=== PATIENT | female | born 1985 | race Caucasian/White ===

== ENCOUNTER → 2017-10-25 07:47 | Outpatient (CLI) | payer OTHER, SELFPAY ==
--- NOTE | 2017-10-25 07:49 | DI.US.S_ITS ---
PROCEDURE: US OB >= 14 WEEKS FETUS INDICATIONS: 20 WEEK ANATOMIC SURVEY OUTSIDE/PRIOR DATING DATA: Last menstrual period (LMP): 06/07/2018. LMP-based estimated date of delivery ([facility]MAN): 03/14/2018. First dating scan (date and location): 08/25/2017. Estimated date of delivery ([facility]) from first dating scan: 03/09/2018. TECHNIQUE: Real-time scanning was performed of the fetus, with image documentation and biometric measurements. Endovaginal scanning: None required COMPARISON: 08/25/2017 FINDINGS: General: A single living intrauterine gestation is present. Presentation: Breech. Placenta: Placental position is anterior, without previa. Amniotic fluid index: 13.2 cm, normal range is 5-24 cm. heart rate: 157 beats per minute. Maternal cervical canal: 3.9 cm long. Normal lower limit is 2.5 cm. biometrics: Biparietal diameter: 19 weeks 6 days Head circumference: 20 weeks one day Abdominal circumference: 19 weeks 6 days Femur length: 20.0 weeks Estimated gestational age from initial scan: 20 weeks 5 days Composite gestational age from present scan: 20.0 weeks, normal growth Estimated weight and percentile: 325 g at the 13th percentile Measurement variability for biometric dating: +/- 7 days from 14 weeks to 15 weeks 6 days gestation, +/- 10 days from 16 weeks to 21 weeks 6 days gestation, +/- 2 weeks from 22 weeks to 27 weeks 6 days gestation, +/- 3 weeks for 28 weeks gestation or later. weight reference: 4500 g or EFW >90/95% is considered macrosomia or large for gestational age. EFW <10% is small for gestational age. EFW 5% or less is considered intra-uterine growth restriction. Anatomic survey: Neuro: Ventricles are non-dilated at less than 10 mm. Cisterna magna is normal at 3-11 mm. Cerebellum is normal in size and morphology. Nuchal skin fold: Normal at less than 6 mm between 14-21 weeks gestational age. Face: Nose and lips, facial profile are normal. Spine: No evidence for spina bifida. Heart: 4-chambered heart is present, with normal ventricular outflow tracts. Diaphragm: Diaphragm is intact. Stomach: Left-sided stomach is present. Kidneys: No hydronephrosis. Normal is less than 5 mm in 2nd trimester, less than 7 mm in 3rd trimester. Cord: 3-vessel cord has orthotopic insertion. Bladder: Normal in size. Extremities: All 4 extremities identified. IMPRESSION: Single, live intrauterine gestation and somewhat variable position, breech to transverse. Estimated gestational age is 20 weeks, normal growth and normal anatomy. Dictated by: Kendall Schroeder M.D. on 10/25/2017 at 8:43 Approved by: Kendall Schroeder M.D. on 10/25/2017 at 8:46
== END ==
PROVIDERS: Family Provider Physician Assistant; PCP Physician Assistant; Visit Provider Specialist
DX: Z34.92 Encounter for supervision of normal pregnancy, unspecified, second trimester (principal); Z3A.20 20 weeks gestation of pregnancy
CPT/HCPCS: 76811

== ENCOUNTER → 2017-12-08 11:37 | Outpatient (CLI) | payer OTHER, SELFPAY ==
[2017-12-08 13:20] LABS: Hematocrit 37.5 % (36-46); Hemoglobin 13.1 g/dL (12.0-16.0)
[2017-12-08 13:37] LABS: GTT (PREG) 1 Hour PP 50gm Dose 141 mg/dL (76-139)
== END ==
PROVIDERS: PCP Physician Assistant; Visit Provider Specialist
DX: Z34.02 Encounter for supervision of normal first pregnancy, second trimester (principal)
CPT/HCPCS: 36415; 82950; 85014; 85018

== ENCOUNTER → 2017-12-22 08:58 | Outpatient (CLI) | payer OTHER, SELFPAY ==
[2017-12-22 14:32] LABS: Urine N gonorrhoeae NOT DETECTED
[2017-12-22 14:47] LABS: Urine Chlamydia NOT DETECTED
== END ==
PROVIDERS: Family Provider Physician Assistant; PCP Physician Assistant; Visit Provider Specialist
DX: Z3A.29 29 weeks gestation of pregnancy (principal)
CPT/HCPCS: 87491; 87591

== ENCOUNTER → 2018-02-16 10:16 | Outpatient (CLI) | payer OTHER, SELFPAY ==
[2018-02-17 20:35] LABS: Strep Grp B PCR POS for Grp B Strep
== END ==
PROVIDERS: Family Provider Physician Assistant; PCP Physician Assistant; Visit Provider Specialist
DX: Z34.03 Encounter for supervision of normal first pregnancy, third trimester (principal); Z3A.36 36 weeks gestation of pregnancy
CPT/HCPCS: 87653

== ENCOUNTER 2018-03-07 12:14 | Observation (INO) | payer OTHER, SELFPAY | END 2018-03-07 13:36 | disposition home or self-care (01) | PROVIDERS: Admitting Provider Specialist; PCP Physician Assistant; Visit Provider Specialist | DX: Z34.03 Encounter for supervision of normal first pregnancy, third trimester (principal); Z3A.39 39 weeks gestation of pregnancy | CPT/HCPCS: 59025; G0378; G0379 ==

== ENCOUNTER 2018-03-07 15:05 | Observation (INO) | payer OTHER, SELFPAY ==
[2018-03-07] MEDS: hydrOXYzine 50 MG/ML INJ 25 MG IM (16:35)
[2018-03-07] MEDS: MORPHINE 10 MG/ML INJ 5 MG IM (16:35)
--- NOTE | 2018-03-07 16:57 | PM.OBTRLD ---
Visit Information Visit Information Date of evaluation: 03/07/18 Primary OB Provider: Rosalind Huang On-call OB Provider: Mihaela Marquez Reason for Evaluation: Yes rule out labor [facility] Medical History Anxiety (Chronic) Depression (Chronic) Fibroids (Chronic ~2010) Irritable bowel syndrome (Chronic ~2009) Vitiligo (Chronic) Bulimia (Resolved) Chickenpox (Resolved ~1989) Surgical History Anesthesia (Inactive) History of third molar tooth extraction (05/28/16) Status post breast reduction (~2005) Family History Father Age: 60 Hypertension, essential Generalized anxiety disorder Grandmother History of colon cancer History of multiple sclerosis Diabetes mellitus Heart disease Hypertension Mother Age: 59 Hypertension, essential Gastroparesis History of skin cancer High cholesterol Endometriosis Fibroids H/O: hysterectomy Grandfather Age: 88 History of type 2 diabetes mellitus Hypertension Grandmother Age: 86 Heart disease Generalized anxiety disorder Hypertension Sister Age: 36 Hypertension, essential Evaluation Evaluation Baseline heart rate: 130 Variability: Moderate (11-25) monitor accelerations: Present monitor decelerations: Absent Contraction Frequency (minutes): 3 Uterine Contraction Intensity: Moderate Category of Tracing: I Cervical dilation (cm): 1 Cervical effacement (%): 70 station: -3 Diagnosis, Plan/Disposition Final Diagnosis (1) 39 weeks gestation of : Current Visit: Yes Status: Acute Plan/Disposition Plan: Patient comes in with regular painful contractions however SVE /-3. Patient prefers to labor at home rather than walk for an hour. NST reactive.
--- NOTE | 2018-03-07 17:00 | P.TNLD_ITS ---
Visit Information Visit Information Date of evaluation: 03/07/18 Primary OB Provider: Rosalind Huang On-call OB Provider: Mihaela Marquez Reason for Evaluation: Yes rule out labor [facility] Medical History Anxiety (Chronic) Depression (Chronic) Fibroids (Chronic ~2010) Irritable bowel syndrome (Chronic ~2009) Vitiligo (Chronic) Bulimia (Resolved) Chickenpox (Resolved ~1989) Surgical History Anesthesia (Inactive) History of third molar tooth extraction (05/28/16) Status post breast reduction (~2005) Family History Father Age: 60 Hypertension, essential Generalized anxiety disorder Grandmother History of colon cancer History of multiple sclerosis Diabetes mellitus Heart disease Hypertension Mother Age: 59 Hypertension, essential Gastroparesis History of skin cancer High cholesterol Endometriosis Fibroids H/O: hysterectomy Grandfather Age: 88 History of type 2 diabetes mellitus Hypertension Grandmother Age: 86 Heart disease Generalized anxiety disorder Hypertension Sister Age: 36 Hypertension, essential Evaluation Evaluation Baseline heart rate: 130 Variability: Moderate (11-25) monitor accelerations: Present monitor decelerations: Absent Contraction Frequency (minutes): 3 Uterine Contraction Intensity: Moderate Category of Tracing: I Cervical dilation (cm): 1 Cervical effacement (%): 70 station: -3 Diagnosis, Plan/Disposition Final Diagnosis (1) 39 weeks gestation of : Current Visit: Yes Status: Acute Plan/Disposition Plan: Patient comes in with regular painful contractions however SVE /-3. Patient prefers to labor at home rather than walk for an hour. NST reactive.
--- NOTE | 2018-03-07 17:02 | P.TNLD_ITS ---
Visit Information Visit Information Date of evaluation: 03/07/18 Primary OB Provider: Rosalind Huagn On-call OB Provider: Mihaela Marquez Reason for Evaluation: Yes rule out labor [facility] Medical History Anxiety (Chronic) Depression (Chronic) Fibroids (Chronic ~2010) Irritable bowel syndrome (Chronic ~2009) Vitiligo (Chronic) Bulimia (Resolved) Chickenpox (Resolved ~1989) Surgical History Anesthesia (Inactive) History of third molar tooth extraction (05/28/16) Status post breast reduction (~2005) Family History Father Age: 60 Hypertension, essential Generalized anxiety disorder Grandmother History of colon cancer History of multiple sclerosis Diabetes mellitus Heart disease Hypertension Mother Age: 59 Hypertension, essential Gastroparesis History of skin cancer High cholesterol Endometriosis Fibroids H/O: hysterectomy Grandfather Age: 88 History of type 2 diabetes mellitus Hypertension Grandmother Age: 86 Heart disease Generalized anxiety disorder Hypertension Sister Age: 36 Hypertension, essential Evaluation Evaluation Baseline heart rate: 120 Variability: Moderate (11-25) monitor accelerations: Present monitor decelerations: Absent Contraction Frequency (minutes): 3 Category of Tracing: I Cervical dilation (cm): 1 Cervical effacement (%): 70 station: -4 Diagnosis, Plan/Disposition Final Diagnosis (1) 39 weeks gestation of : Current Visit: Yes Status: Acute Plan/Disposition Plan: Patient returned to the center with regular painful contractions however SVE unchanged. Patient significantly improved after morphine, hydroxyzine and a hot shower. Return precautions reviewed with patient.
== END 2018-03-07 17:05 | disposition home or self-care (01) ==
PROVIDERS: Admitting Provider Specialist; PCP Physician Assistant; Visit Provider Specialist
DX: Z3A.39 39 weeks gestation of pregnancy (principal)
CPT/HCPCS: 59025; 96372; G0378; G0379; J2270; J3410

== ENCOUNTER 2018-03-07 21:50 | Inpatient (IN) | payer OTHER, SELFPAY ==
[2018-03-07 22:42] LABS: Add Manual Diff / Slide Review NO; Hematocrit 42.1 % (36-46); Hemoglobin 14.9 g/dL (12.0-16.0); Lymphocytes Percent Auto 4.1 % (25-40); Mean Corpuscular HGB Conc 35.4 % (30-36); Mean Corpuscular Hemoglobin 31.4 PG (26-34); Mean Corpuscular Volume 88.8 fL (80-100); Monocytes Percent Auto 1.7 % (3-14); Neutrophils Absolute Auto 17500 /uL (3000-5900); Neutrophils Percent Auto 94.2 % (50-75); Platelet Count 155 X10^3/uL (150-400); Red Blood Cell Count 4.74 X10^6/uL (4.0-5.2); Red Cell Distribution Width 12.4 % (11.6-14.8); White Blood Cell Count 18.5 X10^3/uL (4.5-11.0)
[2018-03-07] MEDS: PENICILLIN G POTASSIUM 5,000,000 UNIT in DEXTROSE 5% IN WATER 250 ML IV (22:53)
[2018-03-07] MEDS: LACTATED RINGERS 1,000 ML 100 ML IV (22:53)
--- NOTE | 2018-03-07 23:18 | PM.OBHP.1 ---
OB HPI Date/Time Date of admission: 03/07/18 Date Patient Seen: 03/07/18 Time Patient Seen: 23:00 History of Present Condition Chief complaint: eval of labor : 1 Para: 0 Estimated Date of Delivery: 03/14/18 Estimated Gestational Age (weeks): 39 wks Narrative: Talita Alfonso is a 32 year old at 39 weeks gestation. Patient had regular care with Dr. Huang. Contractions began at approximately 5 AM today. Patient came to the center twice but was sent home due to lack of cervical change. She returned at third time this evening with regular painful contractions and was 3 cm dilated. History of Present care: good care, initiated at week # (11), number of visits and pounds weight gain (24) Dating criteria: LMP confirmed by 1st trimester US Ultrasounds: normal 1st trimester US and normal mid trimester US Obstetrical complications: none Medical complications: cardiovascular (mitral valve prolapse) Preadmission Labs Blood type: O (+) positive -: Antibody screen: negative, GBS status: positive, HBsAG: negative, HIV: negative, HSV 1: positive, HSV 2: negative and RPR/VDLR: negative -: Chlamydia screen: not detected and Gonorrhea screen: not detected -: Rubella: immune and Varicella: immune HCT: 40.2 HCAB: negative 1 hr GTT: 141 Evaluation Evaluation Baseline heart rate: 130 Variability: Moderate (11-25) monitor accelerations: Present monitor decelerations: Prolonged (One, possibly two prolonged decelerations) Contraction Frequency (minutes): 2 Uterine Contraction Intensity: Strong/Firm Category of Tracing: II Cervical dilation (cm): 3 Cervical effacement (%): 100 station: -3 Laboratory results: Laboratory Tests 03/07/18 03/07/18 22:15 22:15 WBC 18.5 H RBC 4.74 Hgb 14.9 Hct 42.1 MCV 88.8 MCH 31.4 MCHC 35.4 RDW 12.4 Plt Count 155 Neut % (Auto) 94.2 H Lymph % (Auto) 4.1 L [place] % (Auto) 1.7 L Eos % (Auto) 0.0 L Baso % (Auto) 0.0 Neut # (Auto) 17219 H Blood Type O Positive Comments: SROM with thick meconium per RN [facility] Medical History Anxiety (Chronic) Depression (Chronic) Fibroids (Chronic ~2010) Irritable bowel syndrome (Chronic ~2009) Vitiligo (Chronic) Bulimia (Resolved) Chickenpox (Resolved ~1989) Surgical History Anesthesia (Inactive) History of third molar tooth extraction (05/28/16) Status post breast reduction (~2005) Family History Father Age: 60 Hypertension, essential Generalized anxiety disorder Grandmother History of colon cancer History of multiple sclerosis Diabetes mellitus Heart disease Hypertension Mother Age: 59 Hypertension, essential Gastroparesis History of skin cancer High cholesterol Endometriosis Fibroids H/O: hysterectomy Grandfather Age: 88 History of type 2 diabetes mellitus Hypertension Grandmother Age: 86 Heart disease Generalized anxiety disorder Hypertension Sister Age: 36 Hypertension, essential Meds Home Medications Medication Instructions Recorded Confirmed Type betamethasone dipropionate 0 TOPICAL BID #15 gm 02/17/17 Rx fluoxetine 40 mg PO QDAY #90 cap 03/30/17 Rx breast pump #1 each 12/22/17 12/22/17 Rx Allergies Allergy/AdvReac Type Severity Reaction Status Date / Time erythromycin base Allergy Intermediate VOMITING Verified 03/07/18 22:58 [ERYTHROMYCIN BASE] Review of Systems Constitutional Constitutional: Denies fatigue and Denies headache(s) Eyes Eyes: Denies change in vision ENT Ears, Nose, Mouth, and Throat: No headache(s) Respiratory Respiratory: Denies cough Gastrointestinal Gastrointestinal: Denies nausea and Denies vomiting Neurologic Neurologic: Denies headache(s) Endocrine Endocrine: Denies fatigue Exam Const General: healthy appearing and other (Uncomfortable but coping well with contractions) HENMT Head: normal to inspection Ears: hearing grossly normal bilaterally Nose: external nose normal Mouth: oral mucosae normal Eyes General: appearance normal, both eyes and all related structures Conjunctivae: conjunctivae normal EOM: EOM intact bilaterally Neck Neck: normal visual inspection Resp Effort & Inspection: normal respiratory effort and able to speak in complete sentences Cardio Rate: regular rate Rhythm: regular rhythm Manual OB Exam: dilated 3, effaced fully and station high Estimated Weight (lbs): 7 Amniotic Fluid: meconium Extrem General: no clubbing, cyanosis or edema Objective Labs Result Diagrams: 03/07/18 22:15 Labs: Laboratory Results - last 24 hr 03/07/18 03/07/18 22:15 22:15 WBC 18.5 H RBC 4.74 Hgb 14.9 Hct 42.1 MCV 88.8 MCH 31.4 MCHC 35.4 RDW 12.4 Plt Count 155 Neut % (Auto) 94.2 H Lymph % (Auto) 4.1 L [place] % (Auto) 1.7 L Eos % (Auto) 0.0 L Baso % (Auto) 0.0 Neut # (Auto) 05698 H Blood Type O Positive Assessment and Plan (1) 39 weeks gestation of : Current visit: No Status: Acute 32 year old at 39 weeks gestation in active labor. SROM with meconium. GBS positive. Patient had one prolonged deceleration to 90 for unclear reasons. FHT otherwise reassuring. Plan - GBS prophylaxis - Expectant management - Patient does not want an epidural but is open to IV pain medication
--- NOTE | 2018-03-07 23:30 | P.HPOB_ITS ---
OB HPI Date/Time Date of admission: 03/07/18 Date Patient Seen: 03/07/18 Time Patient Seen: 23:00 History of Present Condition Chief complaint: eval of labor : 1 Para: 0 Estimated Date of Delivery: 03/14/18 Estimated Gestational Age (weeks): 39 wks Narrative: Talita Alfonso is a 32 year old at 39 weeks gestation. Patient had regular care with Dr. Huang. Contractions began at approximately 5 AM today. Patient came to the center twice but was sent home due to lack of cervical change. She returned at third time this evening with regular painful contractions and was 3 cm dilated. History of Present care: good care, initiated at week # (11), number of visits and pounds weight gain (24) Dating criteria: LMP confirmed by 1st trimester US Ultrasounds: normal 1st trimester US and normal mid trimester US Obstetrical complications: none Medical complications: cardiovascular (mitral valve prolapse) Preadmission Labs Blood type: O (+) positive -: Antibody screen: negative, GBS status: positive, HBsAG: negative, HIV: negative, HSV 1: positive, HSV 2: negative and RPR/VDLR: negative -: Chlamydia screen: not detected and Gonorrhea screen: not detected -: Rubella: immune and Varicella: immune HCT: 40.2 HCAB: negative 1 hr GTT: 141 Evaluation Evaluation Baseline heart rate: 130 Variability: Moderate (11-25) monitor accelerations: Present monitor decelerations: Prolonged (One, possibly two prolonged decelerations) Contraction Frequency (minutes): 2 Uterine Contraction Intensity: Strong/Firm Category of Tracing: II Cervical dilation (cm): 3 Cervical effacement (%): 100 station: -3 Laboratory results: Laboratory Tests 03/07/18 03/07/18 22:15 22:15 WBC 18.5 H RBC 4.74 Hgb 14.9 Hct 42.1 MCV 88.8 MCH 31.4 MCHC 35.4 RDW 12.4 Plt Count 155 Neut % (Auto) 94.2 H Lymph % (Auto) 4.1 L [place] % (Auto) 1.7 L Eos % (Auto) 0.0 L Baso % (Auto) 0.0 Neut # (Auto) 79024 H Blood Type O Positive Comments: SROM with thick meconium per RN [facility] Medical History Anxiety (Chronic) Depression (Chronic) Fibroids (Chronic ~2010) Irritable bowel syndrome (Chronic ~2009) Vitiligo (Chronic) Bulimia (Resolved) Chickenpox (Resolved ~1989) Surgical History Anesthesia (Inactive) History of third molar tooth extraction (05/28/16) Status post breast reduction (~2005) Family History Father Age: 60 Hypertension, essential Generalized anxiety disorder Grandmother History of colon cancer History of multiple sclerosis Diabetes mellitus Heart disease Hypertension Mother Age: 59 Hypertension, essential Gastroparesis History of skin cancer High cholesterol Endometriosis Fibroids H/O: hysterectomy Grandfather Age: 88 History of type 2 diabetes mellitus Hypertension Grandmother Age: 86 Heart disease Generalized anxiety disorder Hypertension Sister Age: 36 Hypertension, essential Meds Home Medications Medication Instructions Recorded Confirmed Type betamethasone dipropionate 0 TOPICAL BID #15 gm 02/17/17 Rx fluoxetine 40 mg PO QDAY #90 cap 03/30/17 Rx breast pump #1 each 12/22/17 12/22/17 Rx Allergies Allergy/AdvReac Type Severity Reaction Status Date / Time erythromycin base Allergy Intermediate VOMITING Verified 03/07/18 22:58 [ERYTHROMYCIN BASE] Review of Systems Constitutional Constitutional: Denies fatigue and Denies headache(s) Eyes Eyes: Denies change in vision ENT Ears, Nose, Mouth, and Throat: No headache(s) Respiratory Respiratory: Denies cough Gastrointestinal Gastrointestinal: Denies nausea and Denies vomiting Neurologic Neurologic: Denies headache(s) Endocrine Endocrine: Denies fatigue Exam Const General: healthy appearing and other (Uncomfortable but coping well with contractions) HENMT Head: normal to inspection Ears: hearing grossly normal bilaterally Nose: external nose normal Mouth: oral mucosae normal Eyes General: appearance normal, both eyes and all related structures Conjunctivae: conjunctivae normal EOM: EOM intact bilaterally Neck Neck: normal visual inspection Resp Effort & Inspection: normal respiratory effort and able to speak in complete sentences Cardio Rate: regular rate Rhythm: regular rhythm Manual OB Exam: dilated 3, effaced fully and station high Estimated Weight (lbs): 7 Amniotic Fluid: meconium Extrem General: no clubbing, cyanosis or edema Objective Labs Result Diagrams: 03/07/18 22:15 Labs: Laboratory Results - last 24 hr 03/07/18 03/07/18 22:15 22:15 WBC 18.5 H RBC 4.74 Hgb 14.9 Hct 42.1 MCV 88.8 MCH 31.4 MCHC 35.4 RDW 12.4 Plt Count 155 Neut % (Auto) 94.2 H Lymph % (Auto) 4.1 L [place] % (Auto) 1.7 L Eos % (Auto) 0.0 L Baso % (Auto) 0.0 Neut # (Auto) [id number] H Blood Type O Positive Assessment and Plan (1) 39 weeks gestation of : Current visit: No Status: Acute 32 year old at 39 weeks gestation in active labor. SROM with meconium. GBS positive. Patient had one prolonged deceleration to 90 for unclear reasons. FHT otherwise reassuring. Plan - GBS prophylaxis - Expectant management - Patient does not want an epidural but is open to IV pain medication
[2018-03-08] VITALS (8 sets, daily range): BP systolic 98–128; BP diastolic 39–74; PULSE 61–74; RESP 16; TEMP 36.1–36.4; O2SAT 95–97
[2018-03-08] MEDS: fentaNYL 100 MCG/2 ML INJ 50 MCG IV ×2 (01:14→02:56)
--- NOTE | 2018-03-08 01:46 | PM.OBPNLAB ---
Date/Time Date Patient Seen: 03/08/18 Time Patient Seen: 01:35 Pain Control Pain control: tolerating well Pelvic Exam Dilation (cm): 4 Effacement (%): 100 station: -3 Amniotic membrane status: Ruptured Contractions Contractions on admission: regular Monitor mode: External Contraction pattern: Regular Contraction intensity: Strong/Firm Status status: Category ll Heart Rate Baseline: 130 Monitor Accelerations: Present Monitor Decelerations: Variable (infrequent small variable decels) Monitor Variability: Moderate Assessment and Plan Plan: continuous present management Comments: Minimal change in SVE since admission. Discussed with patient continuing present management for the next 1-2 hours and if no change then start pitocin. Also discussed possibility of epidural to allow patient to rest. Patient is coping very well.
[2018-03-08] MEDS: PENICILLIN G POTASSIUM 3,000,000 UNIT/50 ML FROZ.PIGGY 100 UNIT IV ×2 (02:36→06:32)
[2018-03-08] MEDS: LACTATED RINGERS 1,000 ML 100 ML IV ×3 (05:48→16:28)
--- NOTE | 2018-03-08 06:26 | PM.OBPNLAB ---
Date/Time Date Patient Seen: 03/08/18 Time Patient Seen: 06:14 Pain Control Pain control: tolerating well and epidural Pelvic Exam Dilation (cm): 5 Effacement (%): 100 station: -2 Amniotic membrane status: Ruptured Comments: SVE per RN Contractions Monitor mode: External Contraction pattern: Regular Contraction intensity: Moderate Status status: Category ll Heart Rate Baseline: 130 Monitor Accelerations: Present Monitor Decelerations: Variable (intermittent) Monitor Variability: Moderate Assessment and Plan Comments: Patient had made slow cervical change earlier this morning however no change in the last two hours. Will start pitocin. Patient comfortable with epidural.
[2018-03-08] MEDS: OXYTOCIN PREMIX 30 UNIT/500 ML PLAST..BAG IV (06:33)
--- NOTE | 2018-03-08 09:19 | PM.OBPNLAB ---
Date/Time Date Patient Seen: 03/08/18 Time Patient Seen: 09:00 Pain Control Pain control: epidural Pelvic Exam Dilation (cm): 5 Effacement (%): 100 station: -2 Amniotic membrane status: Bulging Comments: AROM thick meconium Contractions Contractions on admission: irregular Monitor mode: External Pitocin rate (mU/min): 4 Contraction pattern: Regular Contraction intensity: Moderate Status status: Category ll Heart Rate Baseline: 140 Monitor Accelerations: Present Monitor Decelerations: Variable Monitor Variability: Moderate Assessment and Plan Comments: No cervical change, question adequacy of contractions. AROM with thick meconium. IUPC placed. Titrate pitocin to adequate contractions.
--- NOTE | 2018-03-08 11:25 | PM.OBPNLAB ---
Date/Time Date Patient Seen: 03/08/18 Time Patient Seen: 11:00 Pain Control Pain control: epidural (not working well) Pelvic Exam Dilation (cm): 4 Effacement (%): 100 station: -2 Amniotic membrane status: Ruptured Contractions Monitor mode: External Contraction pattern: Regular Contraction intensity: Strong/Firm Status status: Category ll Heart Rate Baseline: 140 Monitor Accelerations: Present Monitor Decelerations: Variable (recurrent deep variables to 90) Monitor Variability: Moderate Assessment and Plan Plan: Comments: No cervical change and cervix now feels swollen. Also with recurrent deep variable decelerations despite discontinuation of pitocin. Discussed with patient. Risks reviewed. Consent signed. Will proceed with primary low transverse section for intolerance of labor and arrest of labor. OR aware.
--- NOTE | 2018-03-08 11:29 | P.PNOB_ITS ---
Date/Time Date Patient Seen: 03/08/18 Time Patient Seen: 11:00 Pain Control Pain control: epidural (not working well) Pelvic Exam Dilation (cm): 4 Effacement (%): 100 station: -2 Amniotic membrane status: Ruptured Contractions Monitor mode: External Contraction pattern: Regular Contraction intensity: Strong/Firm Status status: Category ll Heart Rate Baseline: 140 Monitor Accelerations: Present Monitor Decelerations: Variable (recurrent deep variables to 90) Monitor Variability: Moderate Assessment and Plan Plan: Comments: No cervical change and cervix now feels swollen. Also with recurrent deep variable decelerations despite discontinuation of pitocin. Discussed c- section with patient. Risks reviewed. Consent signed. Will proceed with primary low transverse section for intolerance of labor and arrest of labor. OR aware.
[2018-03-08] MEDS: CEFAZOLIN 2 GM/100 ML FROZ.PIGGY IV (11:30)
--- NOTE | 2018-03-08 12:13 | SUR.OPER ---
Supine on Padded OR bed, head on pillow, safety belt at thigh, arms secured on padded arm boards at <90 degrees abduction. Bump under right buttock. Legs uncrossed with pillow under knees, gel pad to heels, tape over blanket to lower legs.
--- NOTE | 2018-03-08 12:35 | SUR.OPER ---
FHT 120 after spinal placed, viable baby girl born at 1205
--- NOTE | 2018-03-08 12:54 | P.OP_ITS ---
Operative Date/Time/Diagnoses Date of procedure: 03/08/18 Time of procedure: 12:00 Pre-op diagnosis: Arrest of labor intolerance of labor Post-op diagnosis: same Procedure & Clinicians Procedure: Primary low transverse section Same procedure as scheduled: Yes Indications: intolerance of labor Arrest of labor Surgeon: Mihaela Marquez Nature Photographer: Radha Clemons Anesthesia Type: Spinal Operative Notes Findings: Viable female Normal uterus, tubes and ovaries Closure Type: primary Specimen(s): other (Cord gases) Implants & Drains: Applied: catheter Estimated Blood Loss (mL): 750 Procedure in detail: The patient was taken to the operating room where she was placed in the seated position. Epidural was inadequate so spinal anesthesia was administered. She was then placed in the dorsal supine position with a leftward tilt. She was prepped and draped in the usual sterile fashion. A timeout was performed. After spinal analgesia was found to be adequate, a Pfannenstiel skin incision was made 2 fingerbreadths above the pubic symphysis and carried through to the underlying layer fascia. The fascia was nicked in the midline and the incision extended bilaterally with Quan scissors. The superior aspect of the fascial incision was grasped with a Nichole clamps, elevated, and the underlying rectus muscles dissected off sharply and bluntly. Attention was then turned to the inferior aspect of this incision which in a similar fashion was grasped with a Nichole clamps, elevated, and the underlying rectus muscles dissected off sharply and bluntly. The rectus muscles were in the midline. The peritoneum was identified, grasped between 2 hemostats, and entered sharply with the Metzenbaum scissors. This incision was extended superiorly and inferiorly with good visualization of the bladder. The bladder blade was inserted. The vesicouterine peritoneum was identified, grasped with the pickup , and entered sharply with the Metzenbaum scissors. This incision was extended bilaterally, and the bladder flap was created digitally. The bladder blade was reinserted. The lower uterine segment was incised in a transverse fashion with the scalpel. Upon entering the amniotic sac there was a small amount of thick meconium stained amniotic fluid. The infant's head was delivered. The remainder of the body delivered without difficulty. The cord was double clamped and cut. A segment of cord was sent for gases. The was handed off to waiting RN and RT. The placenta was delivered manually. The uterus was cleared of all clots and debris. The uterine incision was repaired with #1 chromic in a running interlocking fashion and a second layer the same suture was used for an imbricating layer. Hemostasis was achieved. The tubes and ovaries were examined and were found to be normal. The gutters were cleared of all clots and debris. The bladder flap was reapproximated using 2-0 Vicryl in a running fashion. The parietal peritoneum was closed using 2-0 Vicryl in a running fashion. The fascia was reapproximated using 0 Vicryl in a running fashion. Subcutaneous layer was copiously irrigated with warm normal saline. 4 simple interrupted sutures of 3-0 Vicryl were placed to reapproximate the subcutaneous layer. The skin was closed with 4-0 undyed Vicryl in a subcuticular fashion. Steri-Strips were placed. An Aquacel dressing was placed. The uterus was expressed of a small amount of old blood. Sponge, lap, and instrument counts were correct. The patient tolerated the procedure well, and was taken to PACU in stable condition. Complications: none Condition: stable Disposition: PACU
--- NOTE | 2018-03-08 13:42 | SUR.PHASEI ---
upon transfer pt was awake and alert no complaints voiced. pt spinal decreasing to T5 . pt had ortiz and states she is comfortable. Pt turned and cleaned up.
[2018-03-08] MEDS: KETOROLAC 30 MG/ML VIAL IV (19:28)
[2018-03-09] MEDS: KETOROLAC 30 MG/ML VIAL IV ×3 (01:18→13:41)
[2018-03-09 07:04] LABS: Hematocrit 33.7 % (36-46); Hemoglobin 11.7 g/dL (12.0-16.0)
[2018-03-09] MEDS: DOCUSATE 250 MG CAPSULE PO (10:28)
[2018-03-09] MEDS: OXYCODONE/ACETAMINOPHEN 5/325 TABLET 1 TAB PO ×3 (10:29→19:33)
--- NOTE | 2018-03-09 13:40 | PM.OBPN.1 ---
Subjective - OB Interval history: Patient is postop day 1. section Patient comments: no complaints, pain well controlled and tolerating diet baby status: doing well feeding status: exclusively breast feeding Narrative: Overall patient is doing well without concerns. Date Patient Seen: 03/09/18 Time Patient Seen: 07:00 Exam Vital Signs (past 8 hours): Blood pressure 99/65, pulse 71, temperature 98 Oxygen Delivery Method Room Air Narrative Exam Narrative: Patient's abdomen is soft, nontender. Uterus is firm, at U, appropriately tender. Dressing is clean, dry, and intact. Mild lochia. Extremities without edema, nontender. Objective Labs Result Diagrams: 03/09/18 06:48 Labs: Laboratory Results - last 24 hr 03/09/18 06:48 Hgb 11.7 L Hct 33.7 L Assessment & Plan (1) Delivery by section of full-term : Status: Acute Current Visit: Yes (2) 39 weeks gestation of : Status: Acute Current Visit: No Plan day: 1 plan OB: routine postop care Time Spent With Patient Total time spent is greater than 50% in coordination of care (as documented) at patient's floor/unit and/or counseling patient: less than 15 minutes
[2018-03-09] MEDS: IBUPROFEN 600 MG TABLET PO (19:31)
[2018-03-10] MEDS: OXYCODONE/ACETAMINOPHEN 5/325 TABLET 1 TAB PO ×4 (00:34→12:45)
[2018-03-10] MEDS: IBUPROFEN 600 MG TABLET PO ×3 (02:22→13:42)
--- NOTE | 2018-03-10 07:39 | P.PN_ITS ---
Subjective Date Patient Seen: 03/10/18 Time Patient Seen: 07:37 Interval history: Patient is more uncomfortable today. She is very gassy and is feeling like she needs a bowel movement but is too uncomfortable to push. She is urinating well. She is ambulatory. She denies any headaches, scotoma, epigastric pain. Exam Vital Signs (past 8 hours): Blood pressure 135/92, pulse is 77, temperature 96.2? Oxygen Delivery Method Room Air Narrative Exam Narrative: Abdomen is soft with mild distention. The uterus is firm, at U , appropriately tender. Dressing is clean, dry, intact. Mild lochia. Extremities without edema and nontender. Objective Labs Result Diagrams: 03/09/18 06:48 Assessment & Plan (1) Delivery by section of full-term infant: Current visit: Yes Status: Acute Plan: Assessment/Plan Narrative: Patient is not sure she is ready to be discharged home. She will be evaluated later in the day for possible discharge today or tomorrow. Routine discharge discussion was gone over the patient. Time Spent With Patient Time with patient: less than 15 minutes
[2018-03-10 09:49] VITALS: BP 118/69; PULSE 69; RESP 16; TEMP 36.8
--- NOTE | 2018-03-10 18:15 | PM.OBDS.1 ---
Discharge Providers Date of admission: 03/07/18 21:50 Primary care physician: Regina Garcia PA-C Consults: 03/08/18 14:26 Consult to Airbrush Artist Technical Routine Comment: Discharge provider: Rosalind Huang MD Discharge Date: 03/10/18 Summary Date Patient Seen: 03/10/18 Time Patient Seen: 07:18 Peripartum Data Delivery Method: Section Procedures: Primary low-transverse section for first-stage arrest complications: none [place] 1: Gender: Female Disposition of : home Discharge Diagnosis (1) Delivery by section of full-term infant: Status: Acute Status at Discharge Functional status at discharge: independent ambulation Overall status at discharge: patient is progressing back to baseline Time Spent with Patient Total time spent providing and/or coordinating discharge services: Less than 30 minutes Objective Labs Result Diagrams: 03/09/18 06:48 Discharge Plan Discharge Plan Patient Disposition: Home Discharge Med Rec/Prescriptions Prescriptions: New oxycodone-acetaminophen 5-325 mg Tablet 1 tab PO Q4HR PRN (Reason: Pain, Moderate (4-6)) Qty: 40 RF: 0 ibuprofen 600 mg Tablet 600 mg PO Q6HR PRN (Reason: As Needed For Fever/Mild Pain) Qty: 30 RF: 0 docusate sodium 250 mg Capsule 250 mg PO DAILY Qty: 20 RF: 0 Continue betamethasone dipropionate 0.05 % ointment Topical BID Qty: 15 RF: 1 breast pump device .Route .MEDSUPPLY Qty: 1 RF: 0 Discontinued fluoxetine 40 MG capsule 40 mg PO QDAY Qty: 90 RF: 0 Follow up/Referrals: Rosalind Huang MD [Physician] - 1 Week (Appointment on at 4:45pm. clinic on at 10:00 am.) Provider Discharge Instructions Diet: Diet as Tolerated Activity: No heavy lifting No intercourse Skin/Wound/Dressing Care Report to your healthcare provider any signs of infection, such as:: chills, fever, increased pain and unusual drainage Dressing: Do not remove Aquaclel dressing Visit Report/Discharge Packet Instructions: DI for Visit Report Forms: Stroke Signs & Symptoms Discharge Data Primary Care Provider: Regina Garcia Attending Provider: Mihaela Marquez Admit Date/Time: 03/07/18 21:50 Discharges patient from system. Discharge Date/Time: 03/10/18 15:15
== END 2018-03-10 15:15 | disposition home or self-care (01) | DRG 766 ==
PROVIDERS: Admitting Provider Family Medicine; Family Provider Physician Assistant; PCP Physician Assistant; Visit Provider Family Medicine
PROC: 10D00Z1 Extraction of Products of Conception, Low, Open Approach (ICD-10-PCS; CPT 59514; principal; 2018-03-08 11:45)
DX: O99.824 Streptococcus B carrier state complicating childbirth (principal); Z3A.39 39 weeks gestation of pregnancy; Z37.0 Single live birth; O77.0 Labor and delivery complicated by meconium in amniotic fluid; O77.9 Labor and delivery complicated by fetal stress, unspecified; O62.0 Primary inadequate contractions
CPT/HCPCS: 01967; 01968; 36415; 59025; 59050; 59510; 59514; 85014; 85018; 85025; 86850; 86900; 86901; 96372; G0378; G0379; J0690; J1885; J2270; J2274; J2540; J2590; J3010; J3410

== ENCOUNTER → 2018-10-19 07:29 | Outpatient (CLI) | payer OTHER, SELFPAY ==
[2018-10-19 08:52] LABS: Hematocrit 42.1 % (36-46); Hemoglobin 14.5 g/dL (12.0-16.0); Mean Corpuscular HGB Conc 34.3 % (30-36); Mean Corpuscular Hemoglobin 30.3 PG (26-34); Mean Corpuscular Volume 88.2 fL (80-100); Platelet Count 226 X10^3/uL (150-400); Red Blood Cell Count 4.77 X10^6/uL (4.0-5.2); Red Cell Distribution Width 12.5 % (11.6-14.8)
[2018-10-19 09:21] LABS: Alanine Aminotransferase 18 IU/L (9-52); Albumin 4.4 g/dL (3.5-5.0); Albumin Globulin Ratio 1.4 (1.0-2.8); Alkaline Phosphatase 40 U/L (38-126); Aspartate Aminotransferase 21 IU/L (14-36); BUN Creatinine Ratio 25.7 (6-22); Bilirubin Total 0.6 mg/dL (0.2-1.3); Blood Urea Nitrogen 18 mg/dL (7-17); Calcium 9.3 mg/dL (8.4-10.2); Carbon Dioxide 25 mmol/L (22-32); Chloride 103 mmol/L (98-107); Cholesterol 219 mg/dL (140-199); Estimated Glomerular Filt Rate > 60.0 mL/min (>60); Globulin 3.1 g/dL (1.7-4.1); Glucose 82 mg/dL (70-100); HDL Cholesterol 75 mg/dL (40-60); HEMOLYSIS < 15 (0-50); LDL Cholesterol Calculated 127 mg/dL (<100); Potassium 4.7 mmol/L (3.4-5.1); Sodium 137 mmol/L (137-145); Total Protein 7.5 g/dL (6.3-8.2); Triglycerides 85 mg/dL (35-150)
== END ==
PROVIDERS: PCP Nurse Practitioner Family; Visit Provider Nurse Practitioner Family
DX: Z00.00 Encounter for general adult medical examination without abnormal findings (principal)
CPT/HCPCS: 36415; 80053; 80061; 85027

== ENCOUNTER 2018-11-10 13:00 | Outpatient (RCR) | payer OTHER, SELFPAY ==
--- NOTE | 2018-07-26 11:24 | PT.OIE ---
Current Diagnoses Lower abdominal pain, unspecified (07/21/18) History of uterine scar from previous surgery (07/21/18) Past Medical History (Last Reviewed 03/07/18 @ 23:35 by Mihaela Marquez DO) Anxiety (Chronic) Depression (Chronic) Fibroids (Chronic ~2010) Irritable bowel syndrome (Chronic ~2009) Vitiligo (Chronic) Bulimia (Resolved) Chickenpox (Resolved ~1989) Past Surgical History (Last Reviewed 03/07/18 @ 23:35 by Mihaela Marquez DO) Anesthesia (Inactive) History of third molar tooth extraction (05/28/16) Status post breast reduction (~2005) Provider Visit Care Team Role Provider Type Rosalind Huang MD Attending Provider Physician Specialty: STORY ANALYST Address: [address] [place] [address] Email: [email or web address] Physical Therapy Initial Evaluation PT-OP-A Visit Information Start: 07/21/18 18:44 Freq: Status: Active Protocol: Document 07/21/18 13:00 [facility] (Rec: 07/21/18 18:46 [facility] [email or web address]) Out-Patient Physical Therapy Visit Information Visit Information Visit Type Initial Evaluation Visit Start Time 13:00 Visit Stop Time 13:45 Total Visit Minutes 45 Visit Number 1 Evaluation Information Evaluation Date 07/21/18 PT-OP-B Current Condition Start: 07/21/18 18:44 Freq: Status: Active Protocol: Document 07/21/18 13:00 [facility] (Rec: 07/26/18 11:23 [facility] [email or web address]) Current Condition History of Current Condition Onset Date C -section 15 weeks ago Current Complaints L SI pain, pelvic pain, increased pain following swimming, dysparunia History of Current Condition 32 year old female 15 weeks . She reports she labored for 34 hours and had a epidural with her left leg numb. Due to the babies heart rate dropping she was being turned to the left side with each contraction. She questions if this had any impact on her left SI pain. She then ended up needing a C- section delivery. She reports she did have pubic bone pain/ seperation that began at week 13 of her . She continues now to have discomfort at the pubic bone, nerve irritation at her c- section scar and pain in the SI joint. She also describes pelvic pain and lower abdominal discomfort especially after swimming and with intercourse. Current Functional Impairments (Reported) Functional Limitations- Recreation/ dysparunia, pain following Hobbies swimming, unable to run without pain PT-OP-F Manual Assessment Start: 07/21/18 18:44 Freq: Status: Active Protocol: Document 07/21/18 13:00 [facility] (Rec: 07/26/18 11:23 [facility] [email or web address]) Manual Assessments Soft Tissue Assessment Soft Tissue Mobility Assessment adductor tightness and spasm on the left, levator ani guarding and spasm left side, myofascial restrictions over the scar Joint Mobility Assessment Joint Mobility Assessment + ASLR test right for Left SI instability, pubic instability , + march test left PT-OP-I Pelvic Floor Start: 07/21/18 18:44 Freq: Status: Active Protocol: Document 07/21/18 13:00 [facility] (Rec: 07/26/18 11:23 [facility] [email or web address]) Pelvic Floor Assessment SEMG (uV) Baseline 2 10 Second Contraction 4 Recruitment Pattern Fair Relaxation Fair Holding Fair Stability of Hold Poor/Slow SEMG Stability of Rest Fair Contraction Ability Voluntary Contraction Weak Voluntary Relaxation Weak Manual Muscle Testing Left 1 Manual Muscle Testing Right 1 Manual Muscle Testing Anterior 1 Manual Muscle Testing Posterior 1 Muscle Endurance (Seconds) 4 Comments Pelvic Floor Comments guarding and tenderness to palpation over the left illiococcygeus, difficulty relaxing the pelvic floor on the left, guarding noted of the adductor musculature as well. PT-OP-M Strength Start: 07/21/18 18:44 Freq: Status: Active Protocol: Document 07/21/18 13:00 [facility] (Rec: 07/26/18 11:23 [facility] [email or web address]) Trunk Strength Trunk Manual Muscle Testing Core Stabilization decreased pelvic floor and transverse abdominal strength s /p and PT-OP-Q Treatments Start: 07/21/18 18:44 Freq: Status: Active Protocol: Document 07/21/18 13:00 [facility] (Rec: 07/26/18 11:23 [facility] [email or web address]) Therapeutic Exercises Supine Exercises 2 Supine Exercise Name pelvic floor long holds 10 seconds on 10 seconds off Side bilateral Reps/Minutes x 10 reps 1 Supine Exercise Name hip stretches for the pelvis, happy baby, piriformis, adductor stretch Side bilateral Manual Therapy Treatment Soft Tissue Mobilization 1 Body Location pelvic floor Mobilization Type Manual Lymphatic Drainage Intensity/Depth Moderate Body Position Supine Comments MFR over the left levator ani, illiococcygeus and left adductor musculature Self-Care/Home Management Treatment Education Other Education Talita was given a size medium dilator with instructions for gentle stretching for the pelvic floor x 5 min per day PT-OP-T Assessment and Plan Start: 07/21/18 18:44 Freq: Status: Active Protocol: Document 07/21/18 13:00 [facility] (Rec: 07/26/18 11:23 [facility] [email or web address]) Physical Therapy Assessment Rehab Potential Rehabilitation Potential Excellent Evaluation Complexity Number of Personal Factors/Comorbidities 0 Number of Body Systems Impaired 1-2 Clinical Presentation at Evaluation Stable Impairments Impairments Activity Tolerance Pain Soft Tissue Mobility Strength Other Impairments dysparunia Goals Three Impairment levator ani weakness, MMT 1/5 Abstract Searcher Goal (LTG) Improve pelvic floor strength to 4/5 or better, with good awareness of resting tone. LTG Duration 8 weeks Two Impairment pelvic pain with guarding and spasm left lateral wall and left adductors Short Term Goal (STG) Talita is able to relax her pelvic floor to baseline on EMG biofeedback with relaxed awareness of the pelvic floor STG Duration 4 weeks Abstract Searcher Goal (LTG) Talita reports decreased pelvic pain overall including after swimming and with intercourse. 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 She labored for 34 hours and had a epidural but needed a c- section for delivery. She had experienced pubic bone pain and instability during her . Her complaints now are left sided SI pain, and pelvic pain especially after swimming and with intercourse. She also has some lower abdominal discomfort over her scar. With examination today she is still unstable in her Left SI joint and pubic symphysis. She is guarded in the left lateral wall of her illiococcygeus and has tenderness with palpation here . This is most likely the cause of the pain with intercourse. She is also very guarded in the left adductor. There is weakness in her levator ani as well with difficulty facilitating a contraction of the lateral hull She tested 1/5 MMT. I did start her with gentle stretches for the adductors and pelvic floor, she was given a size medium dilator to begin stretching, and we began EMG biofeedback for neuromuscular awareness of the pelvic floor. I did start a little bit of MFR on the left lateral wall prior to EMG biofeedback. Talita tolerated this well and with biofeedback was able to relax her pelvic floor in between her contractions. Talita may benefit from use of a Neuromuscular electrical stimulation unit to help facilitate her pelvci floor. We will start NMES next visit and she may be a good candidate for a home rental unit. Physical Therapy Plan Frequency and Duration Frequency of Treatment 2x/Week Duration of Treatment 8 weeks Plan of Care Start Date 07/21/18 Plan of Care End Date 09/15/18 Therapeutic Interventions Therapeutic Interventions Home Exercise Program Manual Therapy Neuromuscular Re-education Patient/Caregiver Education Self-Care/Home Management Soft Tissue Mobilization Therapeutic Exercises Modalities Biofeedback Other Therapeutic Interventions neuromuscular electrical stimulation and home rental unit. Next Visit Focus/Plan Next Note Type Treatment Note Next Visit Plan Begin NMES next visit, work on MFR over the scar and left lateral wall of the pelvic floor, work EMG biofeedback for pelvic floor and relaxed awareness of the pelvic floor.
--- NOTE | 2018-07-28 11:11 | PT.OTN ---
Current Diagnoses Lower abdominal pain, unspecified (07/28/18) History of uterine scar from previous surgery (07/28/18) Physical Therapy Treatment Note PT-OP-A Visit Information Start: 07/21/18 18:44 Freq: Status: Active Protocol: Document 07/28/18 11:00 [facility] (Rec: 07/28/18 11:10 [facility] [email or web address]) Out-Patient Physical Therapy Visit Information Visit Information Visit Type Treatment Note Visit Start Time 10:00 Visit Stop Time 10:40 Total Visit Minutes 40 Visit Number 2 Evaluation Information Evaluation Date 07/21/18 PT-OP-B Current Condition Start: 07/21/18 18:44 Freq: Status: Active Protocol: Document 07/21/18 13:00 [facility] (Rec: 07/26/18 11:23 [facility] [email or web address]) Current Condition History of Current Condition Onset Date C -section 15 weeks ago Current Complaints L SI pain, pelvic pain, increased pain following swimming, dysparunia History of Current Condition 32 year old female 15 weeks . She reports she labored for 34 hours and had a epidural with her left leg numb. Due to the babies heart rate dropping she was being turned to the left side with each contraction. She questions if this had any impact on her left SI pain. She then ended up needing a C- section delivery. She reports she did have pubic bone pain/ seperation that began at week 13 of her . She continues now to have discomfort at the pubic bone, nerve irritation at her c- section scar and pain in the SI joint. She also describes pelvic pain and lower abdominal discomfort especially after swimming and with intercourse. Current Functional Impairments (Reported) Functional Limitations- Recreation/ dysparunia, pain following Hobbies swimming, unable to run without pain PT-OP-C Subjective Start: 07/21/18 18:44 Freq: Status: Active Protocol: Document 07/28/18 11:10 [facility] (Rec: 07/28/18 11:10 [facility] [email or web address]) OP-PT Subjective Patient Comments Patient Comments Talita reports she has been doing her stretching and using the dilator at home PT-OP-F Manual Assessment Start: 07/21/18 18:44 Freq: Status: Active Protocol: Document 07/21/18 13:00 [facility] (Rec: 07/26/18 11:23 [facility] [email or web address]) Manual Assessments Soft Tissue Assessment Soft Tissue Mobility Assessment adductor tightness and spasm on the left, levator ani guarding and spasm left side, myofascial restrictions over the scar Joint Mobility Assessment Joint Mobility Assessment + ASLR test right for Left SI instability, pubic instability , + march test left PT-OP-I Pelvic Floor Start: 07/21/18 18:44 Freq: Status: Active Protocol: Document 07/21/18 13:00 [facility] (Rec: 07/26/18 11:23 [facility] [email or web address]) Pelvic Floor Assessment SEMG (uV) Baseline 2 10 Second Contraction 4 Recruitment Pattern Fair Relaxation Fair Holding Fair Stability of Hold Poor/Slow SEMG Stability of Rest Fair Contraction Ability Voluntary Contraction Weak Voluntary Relaxation Weak Manual Muscle Testing Left 1 Manual Muscle Testing Right 1 Manual Muscle Testing Anterior 1 Manual Muscle Testing Posterior 1 Muscle Endurance (Seconds) 4 Comments Pelvic Floor Comments guarding and tenderness to palpation over the left illiococcygeus, difficulty relaxing the pelvic floor on the left, guarding noted of the adductor musculature as well. PT-OP-M Strength Start: 07/21/18 18:44 Freq: Status: Active Protocol: Document 07/21/18 13:00 [facility] (Rec: 07/26/18 11:23 [facility] [email or web address]) Trunk Strength Trunk Manual Muscle Testing Core Stabilization decreased pelvic floor and transverse abominal strength s /p and PT-OP-Q Treatments Start: 07/21/18 18:44 Freq: Status: Active Protocol: Document 07/28/18 11:00 [facility] (Rec: 07/28/18 11:10 [facility] [email or web address]) Therapeutic Exercises Supine Exercises 3 Supine Exercise Name ball squeeze with pelvic floor facilitation 2 Supine Exercise Name pelvic floor long holds 10 seconds on 10 seconds off Side bilateral Reps/Minutes x 10 reps Comments pt to work up to 3 sets of 10 reps for home Manual Therapy Treatment Soft Tissue Mobilization 2 Body Location STM over the scar 1 Body Location pelvic floor Mobilization Type Myofascial Release Intensity/Depth Moderate Body Position Supine Comments MFR over the left levator ani, illiococcygeus and left adductor musculature PT-OP-T Assessment and Plan Start: 07/21/18 18:44 Freq: Status: Active Protocol: Document 07/28/18 11:00 [facility] (Rec: 07/28/18 11:10 [facility] [email or web address]) Physical Therapy Assessment Assessment Summary Assessment Talita presents with decreased adductor spasm and decreased tone in the levator ani musculature on the left side. She has been using the dilator at home. Her resting tone was improved as well to 1 .5 uv. She responded well to NMES and may benefit from a home rental unit. I also began isometric adductor with ball squeeze today and Talita could feel her pelvic floor better with the ball squeeze Physical Therapy Plan Frequency and Duration Frequency of Treatment 2x/Week Duration of Treatment 8 weeks Plan of Care Start Date 07/21/18 Plan of Care End Date 09/15/18 Therapeutic Interventions Therapeutic Interventions Home Exercise Program Manual Therapy Neuromuscular Re-education Patient/Caregiver Education Self-Care/Home Management Soft Tissue Mobilization Therapeutic Exercises Modalities Biofeedback Other Therapeutic Interventions neuromuscular electrical stimulation and home rental unit. Next Visit Focus/Plan Next Note Type Treatment Note Next Visit Plan continue with NMES, MFR for the scar , and progress pelvic floor strengthening as Talita can tolerate
--- NOTE | 2018-08-02 17:16 | PT.OTN ---
Current Diagnoses Lower abdominal pain, unspecified (08/02/18) History of uterine scar from previous surgery (08/02/18) Physical Therapy Treatment Note PT-OP-A Visit Information Start: 07/21/18 18:44 Freq: Status: Active Protocol: Document 08/02/18 16:55 [facility] (Rec: 08/02/18 17:03 [facility] [email or web address]) Out-Patient Physical Therapy Visit Information Visit Information Visit Type Treatment Note Visit Start Time 10:30 Visit Stop Time 11:15 Total Visit Minutes 45 Visit Number 3 Evaluation Information Evaluation Date 07/21/18 PT-OP-B Current Condition Start: 07/21/18 18:44 Freq: Status: Active Protocol: Document 07/21/18 13:00 [facility] (Rec: 07/26/18 11:23 [facility] [email or web address]) Current Condition History of Current Condition Onset Date C -section 15 weeks ago Current Complaints L SI pain, pelvic pain, increased pain following swimming, dysparunia History of Current Condition 32 year old female 15 weeks . She reports she labored for 34 hours and had a epidural with her left leg numb. Due to the babies heart rate dropping she was being turned to the left side with each contraction. She questions if this had any impact on her left SI pain. She then ended up needing a C- section delivery. She reports she did have pubic bone pain/ seperation that began at week 13 of her . She continues now to have discomfort at the pubic bone, nerve irritation at her c- section scar and pain in the SI joint. She also describes pelvic pain and lower abdominal discomfort especially after swimming and with intercourse. Current Functional Impairments (Reported) Functional Limitations- Recreation/ dysparunia, pain following Hobbies swimming, unable to run without pain PT-OP-C Subjective Start: 07/21/18 18:44 Freq: Status: Active Protocol: Document 08/02/18 16:55 [facility] (Rec: 08/02/18 17:03 [facility] [email or web address]) OP-PT Subjective Patient Comments Patient Comments Talita reports she did start wearing a SI belt and this really helped to decrease her muscle spasms and pain in the left SI joint. PT-OP-F Manual Assessment Start: 07/21/18 18:44 Freq: Status: Active Protocol: Document 07/21/18 13:00 [facility] (Rec: 07/26/18 11:23 [facility] [email or web address]) Manual Assessments Soft Tissue Assessment Soft Tissue Mobility Assessment adductor tightness and spasm on the left, levator ani guarding and spasm left side, myofascial restrictions over the scar Joint Mobility Assessment Joint Mobility Assessment + ASLR test right for Left SI instability, pubic instability , + march test left PT-OP-I Pelvic Floor Start: 07/21/18 18:44 Freq: Status: Active Protocol: Document 07/21/18 13:00 [facility] (Rec: 07/26/18 11:23 [facility] [email or web address]) Pelvic Floor Assessment SEMG (uV) Baseline 2 10 Second Contraction 4 Recruitment Pattern Fair Relaxation Fair Holding Fair Stability of Hold Poor/Slow SEMG Stability of Rest Fair Contraction Ability Voluntary Contraction Weak Voluntary Relaxation Weak Manual Muscle Testing Left 1 Manual Muscle Testing Right 1 Manual Muscle Testing Anterior 1 Manual Muscle Testing Posterior 1 Muscle Endurance (Seconds) 4 Comments Pelvic Floor Comments guarding and tenderness to palpation over the left illiococcygeus, difficulty relaxing the pelvic floor on the left, guarding noted of the adductor musculature as well. PT-OP-M Strength Start: 07/21/18 18:44 Freq: Status: Active Protocol: Document 07/21/18 13:00 [facility] (Rec: 07/26/18 11:23 [facility] [email or web address]) Trunk Strength Trunk Manual Muscle Testing Core Stabilization decreased pelvic floor and transverse abominal strength s /p and PT-OP-Q Treatments Start: 07/21/18 18:44 Freq: Status: Active Protocol: Document 08/02/18 16:55 [facility] (Rec: 08/02/18 17:03 [facility] [email or web address]) Therapeutic Exercises Supine Exercises 5 Supine Exercise Name templates for coordination and eccentric control 4 Supine Exercise Name pelvic floor quick contractions Reps/Minutes x 10 reps 2 Supine Exercise Name pelvic floor long holds 10 seconds on 10 seconds off Side bilateral Reps/Minutes x 10 reps Comments pt to work up to 3 sets of 10 reps for home Manual Therapy Treatment Soft Tissue Mobilization 2 Body Location STM over the scar 1 Body Location pelvic floor Mobilization Type Myofascial Release Intensity/Depth Moderate Body Position Supine Comments MFR over the left levator ani, illiococcygeus and left adductor musculature PT-OP-R Modalities Start: 08/02/18 17:04 Freq: Status: Active Protocol: Document 08/02/18 17:11 [facility] (Rec: 08/02/18 17:15 [facility] [email or web address]) Electric Stimulation Electric Stimulation Other Body Location pelvic floor Duration (Minutes) 10 Comments NMES for improved facilitation of the pelvic floor musculature PT-OP-T Assessment and Plan Start: 07/21/18 18:44 Freq: Status: Active Protocol: Document 08/02/18 16:55 [facility] (Rec: 08/02/18 17:03 [facility] [email or web address]) Physical Therapy Assessment Assessment Summary Assessment Feroz pelvic floor strength had improved today on EMG biofeedback. Her average is a 9.4 and max is 17.1 uv. There was decreased tissue tightness with the scar tissue massage today and decreased tightness of the iliococcygeus . Physical Therapy Plan Frequency and Duration Frequency of Treatment 2x/Week Duration of Treatment 8 weeks Plan of Care Start Date 07/21/18 Plan of Care End Date 09/15/18 Therapeutic Interventions Therapeutic Interventions Home Exercise Program Manual Therapy Neuromuscular Re-education Patient/Caregiver Education Self-Care/Home Management Soft Tissue Mobilization Therapeutic Exercises Modalities Biofeedback Other Therapeutic Interventions neuromuscular electrical stimulation and home rental unit. Next Visit Focus/Plan Next Note Type Treatment Note Next Visit Plan trial of EMG biofeedback prior to NMES next visit. Continue to work on scar tissue release
--- NOTE | 2018-08-04 17:41 | PT.OTN ---
Current Diagnoses Lower abdominal pain, unspecified (08/04/18) History of uterine scar from previous surgery (08/04/18) Physical Therapy Treatment Note PT-OP-A Visit Information Start: 07/21/18 18:44 Freq: Status: Active Protocol: Document 08/04/18 17:32 [facility] (Rec: 08/04/18 17:40 [facility] [email or web address]) Out-Patient Physical Therapy Visit Information Visit Information Visit Type Treatment Note Visit Start Time 09:45 Visit Stop Time 10:30 Total Visit Minutes 45 Visit Number 4 Evaluation Information Evaluation Date 07/21/18 PT-OP-B Current Condition Start: 07/21/18 18:44 Freq: Status: Active Protocol: Document 07/21/18 13:00 [facility] (Rec: 07/26/18 11:23 [facility] [email or web address]) Current Condition History of Current Condition Onset Date C -section 15 weeks ago Current Complaints L SI pain, pelvic pain, increased pain following swimming, dysparunia History of Current Condition 32 year old female 15 weeks . She reports she labored for 34 hours and had a epidural with her left leg numb. Due to the babies heart rate dropping she was being turned to the left side with each contraction. She questions if this had any impact on her left SI pain. She then ended up needing a C- section delivery. She reports she did have pubic bone pain/ seperation that began at week 13 of her . She continues now to have discomfort at the pubic bone, nerve irritation at her c- section scar and pain in the SI joint. She also describes pelvic pain and lower abdominal discomfort especially after swimming and with intercourse. Current Functional Impairments (Reported) Functional Limitations- Recreation/ dysparunia, pain following Hobbies swimming, unable to run without pain PT-OP-C Subjective Start: 07/21/18 18:44 Freq: Status: Active Protocol: Document 08/04/18 17:32 [facility] (Rec: 08/04/18 17:40 [facility] [email or web address]) OP-PT Subjective Patient Comments Patient Comments Talita reports the SI belt is helping, the dilator is getting easier to use with decreased posterior pelvic wall pain. She has been working on transverse abdominal stabilization at home. She has not tried going back to swimming or had intercourse yet to test her symptoms. She does have some right sided pubic bone symptoms that started yesterday. PT-OP-F Manual Assessment Start: 07/21/18 18:44 Freq: Status: Active Protocol: Document 07/21/18 13:00 [facility] (Rec: 07/26/18 11:23 [facility] [email or web address]) Manual Assessments Soft Tissue Assessment Soft Tissue Mobility Assessment adductor tightness and spasm on the left, levator ani guarding and spasm left side, myofascial restrictions over the scar Joint Mobility Assessment Joint Mobility Assessment + ASLR test right for Left SI instability, pubic instability , + march test left PT-OP-I Pelvic Floor Start: 07/21/18 18:44 Freq: Status: Active Protocol: Document 07/21/18 13:00 [facility] (Rec: 07/26/18 11:23 [facility] [email or web address]) Pelvic Floor Assessment SEMG (uV) Baseline 2 10 Second Contraction 4 Recruitment Pattern Fair Relaxation Fair Holding Fair Stability of Hold Poor/Slow SEMG Stability of Rest Fair Contraction Ability Voluntary Contraction Weak Voluntary Relaxation Weak Manual Muscle Testing Left 1 Manual Muscle Testing Right 1 Manual Muscle Testing Anterior 1 Manual Muscle Testing Posterior 1 Muscle Endurance (Seconds) 4 Comments Pelvic Floor Comments guarding and tenderness to palpation over the left illiococcygeus, difficulty relaxing the pelvic floor on the left, guarding noted of the adductor musculature as well. PT-OP-M Strength Start: 07/21/18 18:44 Freq: Status: Active Protocol: Document 07/21/18 13:00 [facility] (Rec: 07/26/18 11:23 [facility] [email or web address]) Trunk Strength Trunk Manual Muscle Testing Core Stabilization decreased pelvic floor and transverse abominal strength s /p and PT-OP-Q Treatments Start: 07/21/18 18:44 Freq: Status: Active Protocol: Document 08/04/18 17:32 [facility] (Rec: 08/04/18 17:40 [facility] [email or web address]) Therapeutic Exercises Supine Exercises 5 Supine Exercise Name templates for coordination and eccentric control 4 Supine Exercise Name pelvic floor quick contractions Reps/Minutes x 10 reps 3 Supine Exercise Name ball squeeze with pelvic floor facilitation 2 Supine Exercise Name pelvic floor long holds 10 seconds on 10 seconds off Side bilateral Reps/Minutes x 10 reps Comments pt to work up to 3 sets of 10 reps for home Manual Therapy Treatment Soft Tissue Mobilization 2 Body Location STM over the scar Manual Techniques 1 Type MET right pubic bone upslip Comments good tolerance with leg length equal following treatment and no tenderness over the right pubic bone following treatment PT-OP-R Modalities Start: 08/02/18 17:04 Freq: Status: Active Protocol: Document 08/04/18 17:41 [facility] (Rec: 08/04/18 17:41 [facility] [email or web address]) Electric Stimulation Electric Stimulation Other Body Location pelvic floor Duration (Minutes) 10 Comments NMES for improved facilitation of the pelvic floor musculature PT-OP-T Assessment and Plan Start: 07/21/18 18:44 Freq: Status: Active Protocol: Document 08/04/18 17:32 [facility] (Rec: 08/04/18 17:40 [facility] [email or web address]) Physical Therapy Assessment Assessment Summary Assessment Talita will attempt swimming and or intercourse this weekend to check for symptoms. I did not recheck pelvic floor strength today so this would be good to check next visit. Her average on EMG today was 7.6 with 12.8 max. This was down a bit from last week. We started with biofeedback today and last week started with NMES so it seems she does better with the NMES first to wake up her pelvic floor. She is ordering a stimulation unit for home Physical Therapy Plan Frequency and Duration Frequency of Treatment 2x/Week Duration of Treatment 8 Plan of Care Start Date 07/21/18 Plan of Care End Date 09/15/18 Therapeutic Interventions Therapeutic Interventions Home Exercise Program Manual Therapy Neuromuscular Re-education Patient/Caregiver Education Self-Care/Home Management Soft Tissue Mobilization Therapeutic Exercises Modalities Biofeedback Other Therapeutic Interventions neuromuscular electrical stimulation and home rental unit. Next Visit Focus/Plan Next Note Type Treatment Note Next Visit Plan recheck pelvic floor strength and if there is any residual guarding. NMES prior to biofeedback seems to work best , continue to work on c- section scar.
--- NOTE | 2018-08-18 15:41 | PT.OTN ---
Current Diagnoses Lower abdominal pain, unspecified (08/18/18) History of uterine scar from previous surgery (08/18/18) Physical Therapy Treatment Note PT-OP-A Visit Information Start: 07/21/18 18:44 Freq: Status: Active Protocol: Document 08/18/18 10:30 [facility] (Rec: 08/18/18 15:41 [facility] [email or web address]) Out-Patient Physical Therapy Visit Information Visit Information Visit Type Treatment Note Visit Start Time 10:30 Visit Stop Time 11:15 Total Visit Minutes 45 Visit Number 5 PT-OP-B Current Condition Start: 07/21/18 18:44 Freq: Status: Active Protocol: Document 07/21/18 13:00 [facility] (Rec: 07/26/18 11:23 [facility] [email or web address]) Current Condition History of Current Condition Onset Date C -section 15 weeks ago Current Complaints L SI pain, pelvic pain, increased pain following swimming, dysparunia History of Current Condition 32 year old female 15 weeks . She reports she labored for 34 hours and had a epidural with her left leg numb. Due to the babies heart rate dropping she was being turned to the left side with each contraction. She questions if this had any impact on her left SI pain. She then ended up needing a C- section delivery. She reports she did have pubic bone pain/ seperation that began at week 13 of her . She continues now to have discomfort at the pubic bone, nerve irritation at her c- section scar and pain in the SI joint. She also describes pelvic pain and lower abdominal discomfort especially after swimming and with intercourse. Current Functional Impairments (Reported) Functional Limitations- Recreation/ dysparunia, pain following Hobbies swimming, unable to run without pain PT-OP-C Subjective Start: 07/21/18 18:44 Freq: Status: Active Protocol: Document 08/18/18 10:30 [facility] (Rec: 08/18/18 15:41 [facility] [email or web address]) OP-PT Subjective Patient Comments Patient Comments Talita got her NMES unit on Wednesday, and has been using it. She has been noticing improvement. No pubic symptoms currently. She tried swimming and was able to swim for 20 minutes without symptoms. She felt pressure with intercourse, but did not have pain per se. PT-OP-F Manual Assessment Start: 07/21/18 18:44 Freq: Status: Active Protocol: Document 07/21/18 13:00 [facility] (Rec: 07/26/18 11:23 [facility] [email or web address]) Manual Assessments Soft Tissue Assessment Soft Tissue Mobility Assessment adductor tightness and spasm on the left, levator ani guarding and spasm left side, myofascial restrictions over the scar Joint Mobility Assessment Joint Mobility Assessment + ASLR test right for Left SI instability, pubic instability , + march test left PT-OP-I Pelvic Floor Start: 07/21/18 18:44 Freq: Status: Active Protocol: Document 07/21/18 13:00 [facility] (Rec: 07/26/18 11:23 [facility] [email or web address]) Pelvic Floor Assessment SEMG (uV) Baseline 2 10 Second Contraction 4 Recruitment Pattern Fair Relaxation Fair Holding Fair Stability of Hold Poor/Slow SEMG Stability of Rest Fair Contraction Ability Voluntary Contraction Weak Voluntary Relaxation Weak Manual Muscle Testing Left 1 Manual Muscle Testing Right 1 Manual Muscle Testing Anterior 1 Manual Muscle Testing Posterior 1 Muscle Endurance (Seconds) 4 Comments Pelvic Floor Comments guarding and tenderness to palpation over the left illiococcygeus, difficulty relaxing the pelvic floor on the left, guarding noted of the adductor musculature as well. PT-OP-M Strength Start: 07/21/18 18:44 Freq: Status: Active Protocol: Document 07/21/18 13:00 [facility] (Rec: 07/26/18 11:23 [facility] [email or web address]) Trunk Strength Trunk Manual Muscle Testing Core Stabilization decreased pelvic floor and transverse abominal strength s /p and PT-OP-Q Treatments Start: 07/21/18 18:44 Freq: Status: Active Protocol: Document 08/18/18 10:30 [facility] (Rec: 08/18/18 15:41 [facility] [email or web address]) Therapeutic Exercises Supine Exercises 4 Supine Exercise Name pelvic floor quick contractions Reps/Minutes x 10 reps 3 Supine Exercise Name ball squeeze with pelvic floor facilitation 2 Supine Exercise Name pelvic floor long holds 10 seconds on 10 seconds off Side bilateral Reps/Minutes x 10 reps Comments pt to work up to 3 sets of 10 reps for home 1 Supine Exercise Name hip ER with pelvic floor Resistance #3 t band Reps/Minutes x10 Manual Therapy Treatment Soft Tissue Mobilization 2 Body Location STM over the scar 1 Body Location iliococcygeus, levator ani, obterator internus Mobilization Type Myofascial Release Sustained Pressure Trigger Point Release Intensity/Depth Moderate Body Position Hooklying PT-OP-R Modalities Start: 08/02/18 17:04 Freq: Status: Active Protocol: Document 08/04/18 17:41 [facility] (Rec: 08/04/18 17:41 [facility] [email or web address]) Electric Stimulation Electric Stimulation Other Body Location pelvic floor Duration (Minutes) 10 Comments NMES for improved facilitation of the pelvic floor musculature PT-OP-T Assessment and Plan Start: 07/21/18 18:44 Freq: Status: Active Protocol: Document 08/18/18 10:30 [facility] (Rec: 08/18/18 15:41 [facility] [email or web address]) Physical Therapy Assessment Assessment Summary Assessment Tension bilaterally at levator and obterator internus improved with manual therapy. Pt tolerated increased challenge of pelvic floor strengthening well, but L adductors want to assist with pelvic floor contraction. Physical Therapy Plan Next Visit Focus/Plan Next Note Type Treatment Note Next Visit Plan NMES prior to Continue manual biofeedback seems to work best , continue to work on c- section scar. [ End ]
--- NOTE | 2018-08-30 15:21 | PT.OTN ---
Current Diagnoses Lower abdominal pain, unspecified (08/30/18) History of uterine scar from previous surgery (08/30/18) Physical Therapy Treatment Note PT-OP-A Visit Information Start: 07/21/18 18:44 Freq: Status: Active Protocol: Document 08/30/18 12:47 [facility] (Rec: 08/30/18 14:28 [facility] [id number]) Out-Patient Physical Therapy Visit Information Visit Information Visit Type Treatment Note Visit Start Time 12:47 Visit Stop Time 13:36 Total Visit Minutes 49 Visit Number 6 Evaluation Information Evaluation Date 07/21/18 PT-OP-B Current Condition Start: 07/21/18 18:44 Freq: Status: Active Protocol: Document 07/21/18 13:00 [facility] (Rec: 07/26/18 11:23 [facility] [email or web address]) Current Condition History of Current Condition Onset Date C -section 15 weeks ago Current Complaints L SI pain, pelvic pain, increased pain following swimming, dysparunia History of Current Condition 32 year old female 15 weeks . She reports she labored for 34 hours and had a epidural with her left leg numb. Due to the babies heart rate dropping she was being turned to the left side with each contraction. She questions if this had any impact on her left SI pain. She then ended up needing a C- section delivery. She reports she did have pubic bone pain/ seperation that began at week 13 of her . She continues now to have discomfort at the pubic bone, nerve irritation at her c- section scar and pain in the SI joint. She also describes pelvic pain and lower abdominal discomfort especially after swimming and with intercourse. Current Functional Impairments (Reported) Functional Limitations- Recreation/ dysparunia, pain following Hobbies swimming, unable to run without pain PT-OP-C Subjective Start: 07/21/18 18:44 Freq: Status: Active Protocol: Document 08/30/18 12:47 [facility] (Rec: 08/30/18 14:28 [facility] [id number]) OP-PT Subjective Patient Comments Patient Comments Has been active, walking a lot in [place] and had L SIJ pain and R Pubic pain. Has used NMES at home 10' per session x4 days. Did NMES yesterday morning. L ADD not as tight with use. Having more sensation of the PF on the L side. PT-OP-F Manual Assessment Start: 07/21/18 18:44 Freq: Status: Active Protocol: Document 07/21/18 13:00 [facility] (Rec: 07/26/18 11:23 [facility] [email or web address]) Manual Assessments Soft Tissue Assessment Soft Tissue Mobility Assessment adductor tightness and spasm on the left, levator ani guarding and spasm left side, myofascial restrictions over the scar Joint Mobility Assessment Joint Mobility Assessment + ASLR test right for Left SI instability, pubic instability , + march test left PT-OP-I Pelvic Floor Start: 07/21/18 18:44 Freq: Status: Active Protocol: Document 07/21/18 13:00 [facility] (Rec: 07/26/18 11:23 [facility] [email or web address]) Pelvic Floor Assessment SEMG (uV) Baseline 2 10 Second Contraction 4 Recruitment Pattern Fair Relaxation Fair Holding Fair Stability of Hold Poor/Slow SEMG Stability of Rest Fair Contraction Ability Voluntary Contraction Weak Voluntary Relaxation Weak Manual Muscle Testing Left 1 Manual Muscle Testing Right 1 Manual Muscle Testing Anterior 1 Manual Muscle Testing Posterior 1 Muscle Endurance (Seconds) 4 Comments Pelvic Floor Comments guarding and tenderness to palpation over the left illiococcygeus, difficulty relaxing the pelvic floor on the left, guarding noted of the adductor musculature as well. PT-OP-M Strength Start: 07/21/18 18:44 Freq: Status: Active Protocol: Document 07/21/18 13:00 [facility] (Rec: 07/26/18 11:23 [facility] [email or web address]) Trunk Strength Trunk Manual Muscle Testing Core Stabilization decreased pelvic floor and transverse abominal strength s /p and PT-OP-Q Treatments Start: 07/21/18 18:44 Freq: Status: Active Protocol: Document 08/30/18 12:47 [facility] (Rec: 08/30/18 15:15 [facility] [id number]) Cardio Equipment Bicycle (Upright) Duration (Minutes) 8 Resistance 4 Seat Position 4 Other Core stabilization Manual Therapy Treatment Soft Tissue Mobilization 2 Body Location STM over the scar 1 Body Location iliococcygeus, levator ani, obterator internus Mobilization Type Myofascial Release Sustained Pressure Trigger Point Release Other Intensity/Depth Moderate Body Position Hooklying Comments MFR over the left illiococcygeus and Bilateral adductor musculature (L>R RAMON stretching) Manual Techniques L Obturator Internus Type C/R stretch and TrP treatment Body Location L Obturator Internus Reps/Duration 3 Comments Not able to normalize Sacrum Type MET to correct R rot Sacrum Comments Sacrum corrected L/S Type MET Correction for L5 rotated R on Sacrum Comments Able to correct PT-OP-R Modalities Start: 08/02/18 17:04 Freq: Status: Active Protocol: Document 08/04/18 17:41 [facility] (Rec: 08/04/18 17:41 [facility] [email or web address]) Electric Stimulation Electric Stimulation Other Body Location pelvic floor Duration (Minutes) 10 Comments NMES for improved facilitation of the pelvic floor musculature PT-OP-T Assessment and Plan Start: 07/21/18 18:44 Freq: Status: Active Protocol: Document 08/30/18 12:47 [facility] (Rec: 08/30/18 15:05 [facility] [id number]) Physical Therapy Assessment Goals Three Impairment levator ani weakness, MMT 1/5 Network Systems Integrator Goal (LTG) Improve pelvic floor strength to 4/5 or better, with good awareness of resting tone. LTG Duration 8 weeks Two Impairment pelvic pain with guarding and spasm left lateral wall and left adductors Short Term Goal (STG) Talita is able to relax her pelvic floor to baseline on EMG biofeedback with relaxed awareness of the pelvic floor STG Duration 4 weeks Network Systems Integrator Goal (LTG) Talita reports decreased pelvic pain overall including after swimming and with intercourse. LTG Duration 8 weeks One Impairment SI instability at 15 weeks post , L SI pain Detention Goal (LTG) Improve SI stability with inner core stabilization exercises and Talita has a negative ASLR test LTG Duration 8 weeks Assessment Summary Assessment Tension in Iliococcygeus and active trigger point at L obterator internus improved with manual therapy. Pt has decreased mobility of the abdominal scar on the right and tightness is present in the abdominal RLQ. Pt Sacrum was in R rotation and corrected with JMT. Decreased tension in the hip AD's with MFR stretching. Physical Therapy Plan Frequency and Duration Frequency of Treatment 2x/Week Duration of Treatment 8 Plan of Care Start Date 07/21/18 Plan of Care End Date 09/15/18 Therapeutic Interventions Therapeutic Interventions Home Exercise Program Manual Therapy Neuromuscular Re-education Patient/Caregiver Education Self-Care/Home Management Soft Tissue Mobilization Therapeutic Exercises Modalities Biofeedback Other Therapeutic Interventions neuromuscular electrical stimulation and home rental unit. Next Visit Focus/Plan Next Note Type Treatment Note Next Visit Plan Continue to work on scar. Pt is using NMES at home 4x/week; therefore request pt bring electrode in for biofeedback strengthening and relaxation training. Stretch hip AD's if needed, and strengthen anterior PF. Try C/R stretch to Piriformis. Manual therapy to L Iliococcygeus to decreased tension and stabilize position of sacrum/lumbar spine. Add hands/knees push and K-tape for Rectus Diastasis. [ End ]
--- NOTE | 2018-09-30 09:27 | PT.OTRE ---
Current Diagnoses Lower abdominal pain, unspecified (09/29/18) History of uterine scar from previous surgery (09/29/18) Past Medical History (Last Reviewed 03/07/18 @ 23:35 by Mihaela Marquez DO) Anxiety (Chronic) Depression (Chronic) Fibroids (Chronic ~2010) Irritable bowel syndrome (Chronic ~2009) Vitiligo (Chronic) Bulimia (Resolved) Chickenpox (Resolved ~1989) Surgical History (Last Reviewed 03/07/18 @ 23:35 by Mihaela Marquez DO) Anesthesia (Inactive) History of third molar tooth extraction (05/28/16) Status post breast reduction (~2005) Provider Visit Care Team Role Provider Type Rosalind Huang MD Attending Provider Physician Specialty: TEXTILE DESIGNER Address: [address] [place] [address] Email: [email or web address] Physical Therapy Re-Evaluation PT-OP-A Visit Information Start: 07/21/18 18:44 Freq: Status: Active Protocol: Document 09/29/18 15:15 [facility] (Rec: 09/30/18 09:25 [facility] [id number]) Out-Patient Physical Therapy Visit Information Visit Information Visit Type Re-Evaluation Visit Start Time 15:15 Visit Stop Time 16:00 Total Visit Minutes 45 Visit Number 7 Evaluation Information Evaluation Date 07/21/18 PT-OP-B Current Condition Start: 07/21/18 18:44 Freq: Status: Active Protocol: Document 07/21/18 13:00 [facility] (Rec: 07/26/18 11:23 [facility] [email or web address]) Current Condition History of Current Condition Onset Date C -section 15 weeks ago Current Complaints L SI pain, pelvic pain, increased pain following swimming, dysparunia History of Current Condition 32 year old female 15 weeks . She reports she labored for 34 hours and had a epidural with her left leg numb. Due to the babies heart rate dropping she was being turned to the left side with each contraction. She questions if this had any impact on her left SI pain. She then ended up needing a C- section delivery. She reports she did have pubic bone pain/ seperation that began at week 13 of her . She continues now to have discomfort at the pubic bone, nerve irritation at her c- section scar and pain in the SI joint. She also describes pelvic pain and lower abdominal discomfort especially after swimming and with intercourse. Current Functional Impairments (Reported) Functional Limitations- Recreation/ dysparunia, pain following Hobbies swimming, unable to run without pain PT-OP-C Subjective Start: 07/21/18 18:44 Freq: Status: Active Protocol: Document 09/29/18 15:15 [facility] (Rec: 09/30/18 09:25 [facility] [id number]) OP-PT Subjective Patient Comments Patient Comments Ike reports she is doing beter with her activity tolerance of swimming and decreased pain with intercourse. She also reports she is no longer feeling the lower abdominal discomfort over her scar. She is still feeling the left SI joint pain and instability at times. She has been trying to wear her SI belt but did not wear it the past few days and has been working more so her L SI has been irritated the past few days PT-OP-F Manual Assessment Start: 07/21/18 18:44 Freq: Status: Active Protocol: Document 09/29/18 15:15 [facility] (Rec: 09/30/18 09:25 [facility] [id number]) Manual Assessments Soft Tissue Assessment Soft Tissue Mobility Assessment Overall decreased guarding and spasm of the adducoturs, decreased scar tissue over the scar. There is still some residual guarding of the levator ani on the left side with decreased strength still in the pelvic floor Joint Mobility Assessment Joint Mobility Assessment Improved transverse abdominal recruitment intermittent c/o Left SI instability and pain PT-OP-I Pelvic Floor Start: 07/21/18 18:44 Freq: Status: Active Protocol: Document 09/29/18 15:15 [facility] (Rec: 09/30/18 09:25 [facility] [id number]) Pelvic Floor Assessment Pelvic Clock Pelvic Clock 3-6 Guarding Tightness Contraction Ability Voluntary Contraction Weak Voluntary Relaxation Weak Manual Muscle Testing Left 2 Manual Muscle Testing Right 2 Manual Muscle Testing Anterior 2 Manual Muscle Testing Posterior 2 Muscle Endurance (Seconds) 8 PT-OP-M Strength Start: 07/21/18 18:44 Freq: Status: Active Protocol: Document 07/21/18 13:00 [facility] (Rec: 07/26/18 11:23 [facility] [email or web address]) Trunk Strength Trunk Manual Muscle Testing Core Stabilization decreased pelvic floor and transverse abominal strength s /p and PT-OP-Q Treatments Start: 07/21/18 18:44 Freq: Status: Active Protocol: Document 09/29/18 15:15 [facility] (Rec: 09/30/18 09:25 [facility] [id number]) Therapeutic Exercises Supine Exercises 3 Supine Exercise Name ball squeeze with pelvic floor facilitation 2 Supine Exercise Name pelvic floor long holds 10 seconds on 10 seconds off Side bilateral Reps/Minutes x 10 reps Comments pt to work up to 3 sets of 10 reps for home Manual Therapy Treatment Soft Tissue Mobilization 1 Body Location iliococcygeus, levator ani, obterator internus Mobilization Type Myofascial Release Sustained Pressure Trigger Point Release Other Intensity/Depth Moderate Body Position Hooklying Comments MFR over the left illiococcygeus Manual Techniques 2 Type MET left posterior innominant rotation PT-OP-R Modalities Start: 08/02/18 17:04 Freq: Status: Active Protocol: Document 08/04/18 17:41 [facility] (Rec: 08/04/18 17:41 [facility] [email or web address]) Electric Stimulation Electric Stimulation Other Body Location pelvic floor Duration (Minutes) 10 Comments NMES for improved facilitation of the pelvic floor musculature PT-OP-T Assessment and Plan Start: 07/21/18 18:44 Freq: Status: Active Protocol: Document 09/29/18 15:15 [facility] (Rec: 09/30/18 09:25 [facility] [id number]) Physical Therapy Assessment Goals Three Impairment levator ani weakness, MMT 2/5 Short Term Goal (STG) of 09/29/18 there is improvements but still very weak in the pelvic floor Two Short Term Goal (STG) GOOD PROGRESS Cover Inspector Goal (LTG) GOAL MET One Half-Way Goal (LTG) GOOD PROGRESS Assessment Summary Assessment Talita has been seen for 6 visits in PT. Her pain following swimming and intercourse has decreased. She is showing improvements in terms of strength of the transverse abdominal musculatrue and decreased myofascial tightness and scar tissue over the C section scar . She is still weak in her pelvic floor and the Left SI joint is still a problem for her. She notes she has a older injury where she irritated her sacrum while lifting weights and she is wondering if some of her pelvic floor dysfunction is related to this injury that occured prior to . I would like to work on sacral mobilization with Talita over the next few weeks as she should be getting more pelvic floor recruitment by this time . She is using a home NMES unit for improved awareness and sensation of her pelvic floor at home. Talita would benefit from continued PT to work towards improved pelvic floor strength and SI stabilization on the left. Physical Therapy Plan Frequency and Duration Frequency of Treatment 2x/Week Duration of Treatment 8 Plan of Care Start Date 09/29/18 Plan of Care End Date 11/24/18 Therapeutic Interventions Therapeutic Interventions Home Exercise Program Manual Therapy Neuromuscular Re-education Patient/Caregiver Education Self-Care/Home Management Soft Tissue Mobilization Therapeutic Exercises Modalities Biofeedback Other Therapeutic Interventions neuromuscular electrical stimulation and home rental unit. Next Visit Focus/Plan Next Note Type Treatment Note Next Visit Plan begin looking at sacral stabilization, possible trial of electrical stimulation over the sacral nerves for improved pelvic floor recruitment
--- NOTE | 2018-09-30 09:27 | PT.OPPOC ---
Current Diagnoses Lower abdominal pain, unspecified (09/29/18) History of uterine scar from previous surgery (09/29/18) Provider Visit Care Team Role Provider Type Rosalind Huang MD Attending Provider Physician Specialty: METALLURGICAL INSPECTOR Address: [address] [place] [address], [id number] Email: [email or web address] Plan Of Care PT-OP-T Assessment and Plan Start: 07/21/18 18:44 Freq: Status: Active Protocol: Document 09/29/18 15:15 [facility] (Rec: 09/30/18 09:25 [facility] [id number]) Physical Therapy Assessment Goals Three Impairment levator ani weakness, MMT 2/5 Short Term Goal (STG) of 09/29/18 there is improvements but still very weak in the pelvic floor Two Short Term Goal (STG) GOOD PROGRESS Foreclosure Specialist Goal (LTG) GOAL MET One Foreclosure Specialist Goal (LTG) GOOD PROGRESS Assessment Summary Assessment Talita has been seen for 6 visits in PT. Her pain following swimming and intercourse has decreased. She is showing improvements in terms of strength of the transverse abdominal musculatrue and decreased myofascial tightness and scar tissue over the C section scar . She is still weak in her pelvic floor and the Left SI joint is still a problem for her. She notes she has a older injury where she irritated her sacrum while lifting weights and she is wondering if some of her pelvic floor dysfunction is related to this injury that occured prior to . I would like to work on sacral mobilization with Talita over the next few weeks as she should be getting more pelvic floor recruitment by this time . She is using a home NMES unit for improved awareness and sensation of her pelvic floor at home. Talita would benefit from continued PT to work towards improved pelvic floor strength and SI stabilization on the left. Physical Therapy Plan Frequency and Duration Frequency of Treatment 2x/Week Duration of Treatment 8 Plan of Care Start Date 09/29/18 Plan of Care End Date 11/24/18 Therapeutic Interventions Therapeutic Interventions Home Exercise Program Manual Therapy Neuromuscular Re-education Patient/Caregiver Education Self-Care/Home Management Soft Tissue Mobilization Therapeutic Exercises Modalities Biofeedback Other Therapeutic Interventions neuromuscular electrical stimulation and home rental unit. Next Visit Focus/Plan Next Note Type Treatment Note Next Visit Plan begin looking at sacral stabilization, possible trial of electrical stimulation over the sacral nerves for improved pelvic floor recruitment Plan of Care Dates Plan of Care Start Date 09/29/18 Plan of Care End Date 11/24/18 Please Sign and Return: I have reviewed this Plan of Care and certify that the skilled therapy services above are required to meet the patient?s needs. Physician Signature Date Printed Name and Credentials Clinical Instructor Signature Printed Name and Credentials
--- NOTE | 2018-10-06 17:28 | PT.OTN ---
Current Diagnoses Lower abdominal pain, unspecified (10/06/18) History of uterine scar from previous surgery (10/06/18) Physical Therapy Treatment Note PT-OP-A Visit Information Start: 07/21/18 18:44 Freq: Status: Active Protocol: Document 10/06/18 17:16 [facility] (Rec: 10/06/18 17:28 [facility] [email or web address]) Out-Patient Physical Therapy Visit Information Visit Information Visit Type Treatment Note Visit Start Time 16:10 Visit Stop Time 16:55 Total Visit Minutes 45 Visit Number 8 Evaluation Information Evaluation Date 07/21/18 PT-OP-B Current Condition Start: 07/21/18 18:44 Freq: Status: Active Protocol: Document 07/21/18 13:00 [facility] (Rec: 07/26/18 11:23 [facility] [email or web address]) Current Condition History of Current Condition Onset Date C -section 15 weeks ago Current Complaints L SI pain, pelvic pain, increased pain following swimming, dysparunia History of Current Condition 32 year old female 15 weeks . She reports she labored for 34 hours and had a epidural with her left leg numb. Due to the babies heart rate dropping she was being turned to the left side with each contraction. She questions if this had any impact on her left SI pain. She then ended up needing a C- section delivery. She reports she did have pubic bone pain/ seperation that began at week 13 of her . She continues now to have discomfort at the pubic bone, nerve irritation at her c- section scar and pain in the SI joint. She also describes pelvic pain and lower abdominal discomfort especially after swimming and with intercourse. Current Functional Impairments (Reported) Functional Limitations- Recreation/ dysparunia, pain following Hobbies swimming, unable to run without pain PT-OP-C Subjective Start: 07/21/18 18:44 Freq: Status: Active Protocol: Document 09/29/18 15:15 [facility] (Rec: 09/30/18 09:25 [facility] [id number]) OP-PT Subjective Patient Comments Patient Comments Ike reports she is doing beter with her activity tolerance of swimming and decreased pain with intercourse. She also reports she is no longer feeling the lower abdominal discomfort over her scar. She is still feeling the left SI joint pain and instability at times. She has been trying to wear her SI belt but did not wear it the past few days and has been working more so her L SI has been irritated the past few days PT-OP-F Manual Assessment Start: 07/21/18 18:44 Freq: Status: Active Protocol: Document 09/29/18 15:15 [facility] (Rec: 09/30/18 09:25 [facility] [id number]) Manual Assessments Soft Tissue Assessment Soft Tissue Mobility Assessment Overall decreased guarding and spasm of the adducoturs, decreased scar tissue over the scar. There is still some residual guarding of the levator ani on the left side with decreased strength still in the pelvic floor Joint Mobility Assessment Joint Mobility Assessment Improved transverse abdominal recruitment intermittent c/o Left SI instability and pain PT-OP-I Pelvic Floor Start: 07/21/18 18:44 Freq: Status: Active Protocol: Document 09/29/18 15:15 [facility] (Rec: 09/30/18 09:25 [facility] [id number]) Pelvic Floor Assessment Pelvic Clock Pelvic Clock 3-6 Guarding Tightness Contraction Ability Voluntary Contraction Weak Voluntary Relaxation Weak Manual Muscle Testing Left 2 Manual Muscle Testing Right 2 Manual Muscle Testing Anterior 2 Manual Muscle Testing Posterior 2 Muscle Endurance (Seconds) 8 PT-OP-M Strength Start: 07/21/18 18:44 Freq: Status: Active Protocol: Document 07/21/18 13:00 [facility] (Rec: 07/26/18 11:23 [facility] [email or web address]) Trunk Strength Trunk Manual Muscle Testing Core Stabilization decreased pelvic floor and transverse abominal strength s /p and PT-OP-Q Treatments Start: 07/21/18 18:44 Freq: Status: Active Protocol: Document 10/06/18 17:16 [facility] (Rec: 10/06/18 17:28 [facility] [email or web address]) Manual Therapy Treatment Soft Tissue Mobilization 4 Body Location right sidelying release of the obturator internus 3 Body Location prone release on either side of the sacral SAMANTHA including piriformis Comments release to deep pelvic floor Manual Techniques Sacrum Type MET to correct left sacral rotation Comments worked on MET in left sidelying PT-OP-R Modalities Start: 08/02/18 17:04 Freq: Status: Active Protocol: Document 08/04/18 17:41 [facility] (Rec: 08/04/18 17:41 [facility] [email or web address]) Electric Stimulation Electric Stimulation Other Body Location pelvic floor Duration (Minutes) 10 Comments NMES for improved facilitation of the pelvic floor musculature PT-OP-T Assessment and Plan Start: 07/21/18 18:44 Freq: Status: Active Protocol: Document 10/06/18 17:16 [facility] (Rec: 10/06/18 17:28 [facility] [email or web address]) Physical Therapy Assessment Assessment Summary Assessment right sacral SAMANTHA is deeper than the left and right base is shallow, Talita was very tight in her left obturator internus. She will continue working on this on her own at home with self release Physical Therapy Plan Frequency and Duration Frequency of Treatment 2x/Week Duration of Treatment 8 Plan of Care Start Date 09/29/18 Plan of Care End Date 11/24/18 Therapeutic Interventions Therapeutic Interventions Home Exercise Program Manual Therapy Neuromuscular Re-education Patient/Caregiver Education Self-Care/Home Management Soft Tissue Mobilization Therapeutic Exercises Modalities Biofeedback Other Therapeutic Interventions neuromuscular electrical stimulation and home rental unit. Next Visit Focus/Plan Next Note Type Treatment Note Next Visit Plan recheck pelvic floor recruitment next visit, trial of prone pelvic floor recruitment
--- NOTE | 2018-10-13 15:51 | PT.OTN ---
Current Diagnoses Lower abdominal pain, unspecified (10/13/18) History of uterine scar from previous surgery (10/13/18) Physical Therapy Treatment Note PT-OP-A Visit Information Start: 07/21/18 18:44 Freq: Status: Active Protocol: Document 10/13/18 15:45 [facility] (Rec: 10/13/18 15:51 [facility] [email or web address]) Out-Patient Physical Therapy Visit Information Visit Information Visit Type Treatment Note Visit Start Time 11:15 Visit Stop Time 12:00 Total Visit Minutes 45 Visit Number 9 PT-OP-B Current Condition Start: 07/21/18 18:44 Freq: Status: Active Protocol: Document 07/21/18 13:00 [facility] (Rec: 07/26/18 11:23 [facility] [email or web address]) Current Condition History of Current Condition Onset Date C -section 15 weeks ago Current Complaints L SI pain, pelvic pain, increased pain following swimming, dysparunia History of Current Condition 32 year old female 15 weeks . She reports she labored for 34 hours and had a epidural with her left leg numb. Due to the babies heart rate dropping she was being turned to the left side with each contraction. She questions if this had any impact on her left SI pain. She then ended up needing a C- section delivery. She reports she did have pubic bone pain/ seperation that began at week 13 of her . She continues now to have discomfort at the pubic bone, nerve irritation at her c- section scar and pain in the SI joint. She also describes pelvic pain and lower abdominal discomfort especially after swimming and with intercourse. Current Functional Impairments (Reported) Functional Limitations- Recreation/ dysparunia, pain following Hobbies swimming, unable to run without pain PT-OP-C Subjective Start: 07/21/18 18:44 Freq: Status: Active Protocol: Document 10/13/18 15:45 [facility] (Rec: 10/13/18 15:51 [facility] [email or web address]) OP-PT Subjective Patient Comments Patient Comments Doing better over feeling improved stability and decreased L sided SI pain Patient Reported Progress Improving PT-OP-F Manual Assessment Start: 07/21/18 18:44 Freq: Status: Active Protocol: Document 09/29/18 15:15 [facility] (Rec: 09/30/18 09:25 [facility] [id number]) Manual Assessments Soft Tissue Assessment Soft Tissue Mobility Assessment Overall decreased guarding and spasm of the adducoturs, decreased scar tissue over the scar. There is still some residual guarding of the levator ani on the left side with decreased strength still in the pelvic floor Joint Mobility Assessment Joint Mobility Assessment Improved transverse abdominal recruitment intermittent c/o Left SI instability and pain PT-OP-I Pelvic Floor Start: 07/21/18 18:44 Freq: Status: Active Protocol: Document 09/29/18 15:15 [facility] (Rec: 09/30/18 09:25 [facility] [id number]) Pelvic Floor Assessment Pelvic Clock Pelvic Clock 3-6 Guarding Tightness Contraction Ability Voluntary Contraction Weak Voluntary Relaxation Weak Manual Muscle Testing Left 2 Manual Muscle Testing Right 2 Manual Muscle Testing Anterior 2 Manual Muscle Testing Posterior 2 Muscle Endurance (Seconds) 8 PT-OP-M Strength Start: 07/21/18 18:44 Freq: Status: Active Protocol: Document 07/21/18 13:00 [facility] (Rec: 07/26/18 11:23 [facility] [email or web address]) Trunk Strength Trunk Manual Muscle Testing Core Stabilization decreased pelvic floor and transverse abominal strength s /p and PT-OP-Q Treatments Start: 07/21/18 18:44 Freq: Status: Active Protocol: Document 10/13/18 15:45 [facility] (Rec: 10/13/18 15:51 [facility] [email or web address]) Therapeutic Exercises Supine Exercises 2 Supine Exercise Name pelvic floor long holds 10 seconds on 10 seconds off Side bilateral Reps/Minutes x 10 reps Comments pt to work up to 3 sets of 10 reps for home Manual Therapy Treatment Soft Tissue Mobilization 4 Body Location right sidelying release of the obturator internus 3 Body Location prone release on either side of the sacral SAMANTHA including piriformis Comments release to deep pelvic floor 1 Body Location iliococcygeus, levator ani, obterator internus Mobilization Type Myofascial Release Sustained Pressure Trigger Point Release Other Intensity/Depth Moderate Body Position Hooklying Comments MFR over the left illiococcygeus PT-OP-R Modalities Start: 08/02/18 17:04 Freq: Status: Active Protocol: Document 08/04/18 17:41 [facility] (Rec: 08/04/18 17:41 [facility] [email or web address]) Electric Stimulation Electric Stimulation Other Body Location pelvic floor Duration (Minutes) 10 Comments NMES for improved facilitation of the pelvic floor musculature PT-OP-T Assessment and Plan Start: 07/21/18 18:44 Freq: Status: Active Protocol: Document 10/13/18 15:45 [facility] (Rec: 10/13/18 15:51 [facility] [email or web address]) Physical Therapy Assessment Assessment Summary Assessment decreased resting tone overall today, able to get close to base line with hip IR and thinking of widening the sitting bones. Sacrum was aligned today Physical Therapy Plan Frequency and Duration Frequency of Treatment 2x/Week Duration of Treatment 8 Plan of Care Start Date 09/29/18 Plan of Care End Date 11/24/18 Therapeutic Interventions Therapeutic Interventions Home Exercise Program Manual Therapy Neuromuscular Re-education Patient/Caregiver Education Self-Care/Home Management Soft Tissue Mobilization Therapeutic Exercises Modalities Biofeedback Other Therapeutic Interventions neuromuscular electrical stimulation and home rental unit. Next Visit Focus/Plan Next Note Type Treatment Note Next Visit Plan recheck sacral alignment and pelvic floor recruitment next visit
--- NOTE | 2018-11-14 15:10 | PT.OTN ---
Current Diagnoses Lower abdominal pain, unspecified (11/10/18) History of uterine scar from previous surgery (11/10/18) Physical Therapy Treatment Note PT-OP-A Visit Information Start: 07/21/18 18:44 Freq: Status: Active Protocol: Document 11/10/18 13:00 [facility] (Rec: 11/14/18 15:10 [facility] [email or web address]) Out-Patient Physical Therapy Visit Information Visit Information Visit Type Treatment Note Visit Start Time 13:00 Visit Stop Time 13:45 Total Visit Minutes 45 Visit Number 10 PT-OP-B Current Condition Start: 07/21/18 18:44 Freq: Status: Active Protocol: Document 07/21/18 13:00 [facility] (Rec: 07/26/18 11:23 [facility] [email or web address]) Current Condition History of Current Condition Onset Date C -section 15 weeks ago Current Complaints L SI pain, pelvic pain, increased pain following swimming, dysparunia History of Current Condition 32 year old female 15 weeks . She reports she labored for 34 hours and had a epidural with her left leg numb. Due to the babies heart rate dropping she was being turned to the left side with each contraction. She questions if this had any impact on her left SI pain. She then ended up needing a C- section delivery. She reports she did have pubic bone pain/ seperation that began at week 13 of her . She continues now to have discomfort at the pubic bone, nerve irritation at her c- section scar and pain in the SI joint. She also describes pelvic pain and lower abdominal discomfort especially after swimming and with intercourse. Current Functional Impairments (Reported) Functional Limitations- Recreation/ dysparunia, pain following Hobbies swimming, unable to run without pain PT-OP-C Subjective Start: 07/21/18 18:44 Freq: Status: Active Protocol: Document 11/10/18 13:00 [facility] (Rec: 11/14/18 15:10 [facility] [email or web address]) OP-PT Subjective Patient Comments Patient Comments Doing better now with her left SI and does not feel like her pelvic floor is as tight now with intercourse Still wearing core shorts to work Patient Reported Progress Improving PT-OP-F Manual Assessment Start: 07/21/18 18:44 Freq: Status: Active Protocol: Document 09/29/18 15:15 [facility] (Rec: 09/30/18 09:25 [facility] [id number]) Manual Assessments Soft Tissue Assessment Soft Tissue Mobility Assessment Overall decreased guarding and spasm of the adducoturs, decreased scar tissue over the scar. There is still some residual guarding of the levator ani on the left side with decreased strength still in the pelvic floor Joint Mobility Assessment Joint Mobility Assessment Improved transverse abdominal recruitment intermittent c/o Left SI instability and pain PT-OP-I Pelvic Floor Start: 07/21/18 18:44 Freq: Status: Active Protocol: Document 09/29/18 15:15 [facility] (Rec: 09/30/18 09:25 [facility] [id number]) Pelvic Floor Assessment Pelvic Clock Pelvic Clock 3-6 Guarding Tightness Contraction Ability Voluntary Contraction Weak Voluntary Relaxation Weak Manual Muscle Testing Left 2 Manual Muscle Testing Right 2 Manual Muscle Testing Anterior 2 Manual Muscle Testing Posterior 2 Muscle Endurance (Seconds) 8 PT-OP-M Strength Start: 07/21/18 18:44 Freq: Status: Active Protocol: Document 07/21/18 13:00 [facility] (Rec: 07/26/18 11:23 [facility] [email or web address]) Trunk Strength Trunk Manual Muscle Testing Core Stabilization decreased pelvic floor and transverse abominal strength s /p and PT-OP-Q Treatments Start: 07/21/18 18:44 Freq: Status: Active Protocol: Document 11/10/18 13:00 [facility] (Rec: 11/14/18 15:10 [facility] [email or web address]) Therapeutic Exercises Supine Exercises 4 Supine Exercise Name templates for eccentric control 2 Supine Exercise Name pelvic floor long holds 10 seconds on 10 seconds off Side bilateral Reps/Minutes x 10 reps Comments pt to work up to 3 sets of 10 reps for home 1 Supine Exercise Name quick contractions Reps/Minutes x 10 Manual Therapy Treatment Soft Tissue Mobilization 1 Body Location iliococcygeus, levator ani, obterator internus Mobilization Type Myofascial Release Sustained Pressure Trigger Point Release Other Intensity/Depth Moderate Body Position Hooklying Comments MFR over the left illiococcygeus Manual Techniques L Obturator Internus Type C/R stretch and TrP treatment Body Location L Obturator Internus Reps/Duration 3 Comments Not able to normalize PT-OP-R Modalities Start: 08/02/18 17:04 Freq: Status: Active Protocol: Document 08/04/18 17:41 [facility] (Rec: 08/04/18 17:41 [facility] [email or web address]) Electric Stimulation Electric Stimulation Other Body Location pelvic floor Duration (Minutes) 10 Comments NMES for improved facilitation of the pelvic floor musculature PT-OP-T Assessment and Plan Start: 07/21/18 18:44 Freq: Status: Active Protocol: Document 11/10/18 13:00 [facility] (Rec: 11/14/18 15:10 [facility] [email or web address]) Physical Therapy Assessment Assessment Summary Assessment Resting tone continues to decrease, her average contraction today is 9.5uv with max of 15 uv. Good improvements in symptoms Physical Therapy Plan Next Visit Focus/Plan Next Note Type Treatment Note Next Visit Plan Talita has one visit left for recheck of resting tone and pelvic floor strength
--- NOTE | 2019-02-14 14:24 | PT.OPDS ---
Current Diagnoses Lower abdominal pain, unspecified (11/10/18) History of uterine scar from previous surgery (11/10/18) Visit Care Team Role Provider Type Rosalind Huang MD Attending Provider Physician Specialty: [employer] Address: [address] [place] [address], [id number] Email: [email or web address] Visit Number Visit Number 10 Discharge Summary PT-OP-B Current Condition Start: 07/21/18 18:44 Freq: Status: Active Protocol: Document 07/21/18 13:00 [facility] (Rec: 07/26/18 11:23 [facility] [email or web address]) Current Condition History of Current Condition Onset Date C -section 15 weeks ago Current Complaints L SI pain, pelvic pain, increased pain following swimming, dysparunia History of Current Condition 32 year old female 15 weeks . She reports she labored for 34 hours and had a epidural with her left leg numb. Due to the babies heart rate dropping she was being turned to the left side with each contraction. She questions if this had any impact on her left SI pain. She then ended up needing a C- section delivery. She reports she did have pubic bone pain/ seperation that began at week 13 of her . She continues now to have discomfort at the pubic bone, nerve irritation at her c- section scar and pain in the SI joint. She also describes pelvic pain and lower abdominal discomfort especially after swimming and with intercourse. Current Functional Impairments (Reported) Functional Limitations- Recreation/ dysparunia, pain following Hobbies swimming, unable to run without pain PT-OP-C Subjective Start: 07/21/18 18:44 Freq: Status: Active Protocol: Document 11/10/18 13:00 [facility] (Rec: 11/14/18 15:10 [facility] [email or web address]) OP-PT Subjective Patient Comments Patient Comments Doing better now with her left SI and does not feel like her pelvic floor is as tight now with intercourse Still wearing core shorts to work Patient Reported Progress Improving PT-OP-F Manual Assessment Start: 07/21/18 18:44 Freq: Status: Active Protocol: Document 09/29/18 15:15 [facility] (Rec: 09/30/18 09:25 [facility] [id number]) Manual Assessments Soft Tissue Assessment Soft Tissue Mobility Assessment Overall decreased guarding and spasm of the adducoturs, decreased scar tissue over the scar. There is still some residual guarding of the levator ani on the left side with decreased strength still in the pelvic floor Joint Mobility Assessment Joint Mobility Assessment Improved transverse abdominal recruitment intermittent c/o Left SI instability and pain PT-OP-I Pelvic Floor Start: 07/21/18 18:44 Freq: Status: Active Protocol: Document 09/29/18 15:15 [facility] (Rec: 09/30/18 09:25 [facility] [id number]) Pelvic Floor Assessment Pelvic Clock Pelvic Clock 3-6 Guarding,Tightness Contraction Ability Voluntary Contraction Weak Voluntary Relaxation Weak Manual Muscle Testing Left 2 Manual Muscle Testing Right 2 Manual Muscle Testing Anterior 2 Manual Muscle Testing Posterior 2 Muscle Endurance (Seconds) 8 PT-OP-M Strength Start: 07/21/18 18:44 Freq: Status: Active Protocol: Document 07/21/18 13:00 [facility] (Rec: 07/26/18 11:23 [facility] [email or web address]) Trunk Strength Trunk Manual Muscle Testing Core Stabilization decreased pelvic floor and transverse abominal strength s /p and PT-OP-T Assessment and Plan Start: 07/21/18 18:44 Freq: Status: Active Protocol: Document 02/14/19 14:23 [facility] (Rec: 02/14/19 14:24 [facility] [email or web address]) Physical Therapy Plan Discharge Physical Therapy Discharge Reasons No Longer Attending PT Discharge Comments Talita called to cx her last appointment in PT. She is doing better overall and ready to discharge.
== END 2019-02-15 16:35 | disposition home or self-care (01) ==
LOC: PHYS 13:00
PROVIDERS: Visit Provider Specialist
DX: R10.30 Lower abdominal pain, unspecified (principal); Z98.891 History of uterine scar from previous surgery
CPT/HCPCS: 97014; 97110; 97140; 97161; 97164; G0283

== ENCOUNTER → 2019-02-01 12:23 | Outpatient (CLI) | payer OTHER, SELFPAY ==
[2019-02-01 13:36] LABS: TSH w/ Reflex to FT4 3.17 uIU/mL (0.47-4.68)
== END ==
PROVIDERS: PCP Nurse Practitioner Family; Visit Provider Nurse Practitioner Family
DX: F32.9 Major depressive disorder, single episode, unspecified (principal); F41.1 Generalized anxiety disorder
CPT/HCPCS: 36415; 84443

== ENCOUNTER → 2019-08-16 15:31 | Outpatient (CLI) | payer OTHER, SELFPAY ==
[2019-08-16 16:31] LABS: Appearance Urine UA SL CLOUDY; Bilirubin Urine UA NEGATIVE (NEGATIVE); Color Urine UA YELLOW; Glucose Urine UA NEGATIVE (Negative); Ketones Urine UA NEGATIVE (NEGATIVE); Leukocyte Esterase Urine UA TRACE (NEGATIVE); Nitrite Urine UA NEGATIVE (Negative); Occult Blood Urine UA NEGATIVE (Negative); Protein Urine UA NEGATIVE (Negative); Specific Gravity Urine UA 1.015 (1.000-1.035); Urobilinogen Urine UA 0.2 E.U./dL (0.2)
[2019-08-16 16:33] LABS: pH Urine UA 6.5 (4.5-8.0)
[2019-08-16 16:47] LABS: Add Manual Diff / Slide Review NO; Basophils Absolute Auto 0 /uL (0-100); Basophils Percent Auto 0.3 % (0-2); Eosinophils Absolute Auto 200 /uL (0-450); Eosinophils Percent Auto 1.9 % (2-4); Hematocrit 37.9 % (36-46); Hemoglobin 13.3 g/dL (12.0-16.0); Lymphocytes Absolute Auto 2900 /uL (1100-4500); Lymphocytes Percent Auto 27.6 % (25-40); Mean Corpuscular HGB Conc 35.1 % (30-36); Mean Corpuscular Hemoglobin 30.7 PG (26-34); Mean Corpuscular Volume 87.5 fL (80-100); Monocytes Absolute Auto 600 /uL (0-900); Monocytes Percent Auto 5.9 % (3-14); Neutrophils Absolute Auto 6800 /uL (1500-7000); Neutrophils Percent Auto 64.3 % (50-75); Platelet Count 219 X10^3/uL (150-400); Red Blood Cell Count 4.33 X10^6/uL (4.0-5.2); Red Cell Distribution Width 12.2 % (11.6-14.8); White Blood Cell Count 10.6 X10^3/uL (4.5-11.0)
[2019-08-16 16:56] LABS: RBC Urine 0-1/HPF (0-5/HPF); WBC Urine 1-5/HPF (0-5/HPF)
[2019-08-16 16:57] LABS: Bacteria Urine Few (2-10); Squamous Epithelial Cell Urine 5-10 /HPF (0-5/HPF)
[2019-08-16 18:08] LABS: Hepatitis B Surface Antigen NEGATIVE s/c (NEGATIVE); Rubella Antibody IgG 44.9 IU/mL (>15)
[2019-08-16 18:26] LABS: HIV 1 & 2 Ab/Ag 4th Gen Combo NEGATIVE (NEGATIVE); Hep C Virus Ab w/Reflex Quant NEGATIVE s/c (NEGATIVE)
[2019-08-16 20:09] LABS: Urine N gonorrhoeae NOT DETECTED
[2019-08-16 20:29] LABS: Urine Chlamydia NOT DETECTED
[2019-08-18 22:02] LABS: RPR Screen Nonreactive (Nonreactive)
== END ==
PROVIDERS: PCP Nurse Practitioner Family; Referring Provider Specialist; Visit Provider Specialist
DX: Z34.81 Encounter for supervision of other normal pregnancy, first trimester (principal)
CPT/HCPCS: 36415; 80055; 81003; 81015; 86787; 86803; 86850; 86900; 86901; 87086; 87389; 87491; 87591